=== PATIENT | female | born 1990 | race Caucasian/White ===

== ENCOUNTER 2024-10-27 16:44 | Outpatient (REF) | payer OTHER, SELFPAY | END 2024-10-27 16:45 | disposition home or self-care (01) | LOC: LAB 16:44 | PROVIDERS: Visit Provider Obstetrics & Gynecology | DX: N92.0 Excessive and frequent menstruation with regular cycle (principal); N93.9 Abnormal uterine and vaginal bleeding, unspecified ==

== ENCOUNTER 2024-11-02 12:00 | Outpatient (REF) | payer OTHER, SELFPAY ==
[2024-11-04 15:09] LABS: Age Gdln ACOG Testing Note (.); HPV Aptima Negative (Negative); IGP, Aptima HPV, rfx 16/18,45 Note (.)
== END 2024-11-02 12:01 | disposition home or self-care (01) ==
LOC: LAB 12:00
PROVIDERS: Visit Provider Obstetrics & Gynecology
DX: Z01.419 Encounter for gynecological examination (general) (routine) without abnormal findings (principal)
CPT/HCPCS: 87624; 88175

== ENCOUNTER 2024-11-07 13:22 | Emergency (ER) | payer OTHER, SELFPAY ==
--- OUTSIDE RECORDS SUMMARY | 2024-10-27 13:30 | XMS_ITS | Encounter Summary ---
Author Organization [facility] Address [address] [place] [address] Care Team Providers Care Senior Director Of Global Commercial Technology Solutions Name Role Phone Bear Knight MD Primary Care Provider [phone] Derik Cordero DO Unavailable [phone] Reason for Visit * Reason Comments Pre-op Visit EMBX Encounter Details Date Type Department Care Team (Late st Contact Info) Description 10/27/2024 1:30 PM EDT Procedure Visit [facility] [address] [place] [address] Elvin Pina, DO [address] [place] [address] Pre-op examination; Menorrhagia with regular cycle; Abnormal uterine bleeding (AUB); Pelvic pain Social History Tobacco Use Types Packs/Day Years Used Date Smoking Tobacco: Never Smokeless Tobacco: Never Alcohol Use Standard Drinks/Week Comments Never 0 (1 standard drink = 0.6 oz pur e alcohol) Comments Unknown Sex and Gender Information Value Date Recorded Sex Assigned at Not on file Legal Sex Female 7:25 PM EDT Gender Identity Not on file Sexual Orientation Not on file documented as of this encounter Last Filed Vital Signs Vital Sign Reading Time Taken Comments Blood Pressure 100/62 10/27/2024 2:07 PM EDT Pulse - - Temperature - - Respiratory Rate - - Oxygen Saturation - - Inhaled Oxygen Concentration - - Weight 81.9 kg (180 lb 8 oz) 10/27/2024 2:07 PM EDT Height - - Body Mass Index 27.44 08/29/2023 9:37 AM EDT documented in this encounter Progress Notes * Marlys Titus - 10/27/2024 1:30 PM EDT Reason for Appointment: Patient ID: Bria Meek is a 33 y.o. female who presents for Pre-op Visit and EMBX Patient presents today for Pre Op/Endometrial Biopsy appointment. Patient is scheduled to undergo Endometrial Ablation with Catia on 11-20-[address] Pina at [facility]. MEDICATIONS Current Outpatient Medications Medication Instructions Fluticasone-Salmeterol 250-50 MCG/ACT aerosol powder INHALE 1 PUFF IN THE MORNING AND 1 PUFF BEFOREBEDTIME. 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 Chronic dysfunction of right eustachian tube 03/05/2022 Asthma ([facility]) 05/06/1991 Difficulty walking 02/27/2023 Ear pressure, right 04/03/2022 Hidradenitis suppurativa 11/04/2018 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 03/05/2022 Internal derangement of left knee 02/27/2023 Obesity 11/04/2018 Patellofemoral pain syndrome of right knee 02/27/2023 No Additional Past Medical History HISTORY PAST MEDICAL HISTORY SOCIAL HISTORY Past Medical History: Diagnosis Date Asthma ([facility]) Asthma ([facility]) 05/06/1991 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 Chronic dysfunction of right eustachian tube 03/05/2022 Difficulty walking 02/27/2023 Ear pressure, right 04/03/2022 Hidradenitis suppurativa 11/04/2018 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 ZIMMERMAN [place] LAP,CHOLECYSTECTOMY 2015 TUBAL LIGATION TYMPANOSTOMY TUBE PLACEMENT 04/15/2023 REVIEW OF SYSTEMS Review of Systems: Review of Systems Constitutional: Negative. HENT: Negative. Eyes: Negative. Respiratory: Negative. Cardiovascular: Negative. Gastrointestinal: Negative. Genitourinary: Negative. Musculoskeletal: Negative. Skin: Negative. Neurological: Negative. All other systems reviewed and are negative. Hematological: Negative. Endocrine: Negative. Allergic/Immunologic: Negative. OBJECTIVE Objective: Physical Exam Constitutional: Appearance: Normal appearance. She is well-developed. Genitourinary: Vulva normal. Cardiovascular: Rate and Rhythm: Normal rate and regular rhythm. Pulmonary: Effort: Pulmonary effort is normal. Breath sounds: Normal breath sounds. Abdominal: General: Bowel sounds are normal. There is no distension. Palpations: Abdomen is soft. Tenderness: There is no abdominal tenderness. There is no guarding or rebound. Musculoskeletal: General: No swelling. Normal range of motion. Right lower leg: No edema. Left lower leg: No edema. Neurological: Mental Status: She is alert and oriented to person, place, and time. Skin: General: Skin is warm and dry. Psychiatric: Mood and Affect: Mood normal. Behavior: Behavior normal. Vitals and nursing note reviewed. Exam conducted with a building maintenance mechanic present. Vitals: Estimated body mass index is 27.89 kg/m² as calculated from the following: Height as of 08/29/23: 5' 8 . Weight as of 09/14/24: 183 lb 6.4 oz. BP: No LMP recorded. ASSESSMENT & PLAN ICD-10-CM 1. Pre-op examination Z01.818 2. Menorrhagia with regular cycle N92.0 3. Abnormal uterine bleeding (AUB) N93.9 4. Pelvic pain R10.2 EMBX: Patient was placed in dorsal lithotomy position with feet in stirrups. A sterile speculum was placed into the vagina and the cervix was visualized. The cervix was grasped with a single tooth tenaculum. The endometrial pipette was placed through the cervix into the uterus, endometrial curettage was performed and sampling was obtained, endometrial curettings were placed in formalin, and single tooth tenaculum was removed. Excellent hemostasis was assured. All instruments were removed from vagina. Pre Op: Patient is doing well but has complaints of menorrhagia, AUB, pelvic pain. I have discussed conservative management vs. surgical management with the patient in detail and patient desires surgical management at this time. Patient will undergo Endometrial Ablation with Catia on 11/20/24. Surgical consents were signed, mmc was reviewed, and patient is to proceed to [facility] OR. Follow Up: Patient is to follow up between 1-2 weeks post operative to assess proper healing and recovery fromprocedure. Documented by Nichole Correa LPN on behalf of: Elvin Pina DO documented in this encounter Plan of Treatment Upcoming Encounters Date Type Department Care Team (Late st Contact Info) Description 12/03/2024 2:30 PM EDT Office Visit [facility] [address] [place] [address] Giovanna Baker PA [address] [place] [address] documented as of this encounter Procedures Procedure Name Priority Date/Time Associated Diagnosis Comments POCT , URINE Routine 10/27/2024 2:16 PM EDT Pre-op examination documented in this encounter Results * POCT , urine manually resulted (10/27/2024 2:16 PM EDT) Preg Test, Ur Negative Negative Urine 10/27/2024 2:16 PM EDT Elvin Pina DO POINT OF CARE TEST ENTER/EDIT OR DERABLES Final Result documented in this encounter Visit Diagnoses Diagnosis Pre-op examination Menorrhagia with regular cycle Abnormal uterine bleeding (AUB) Pelvic pain documented in this encounter Care Teams Senior Director Of [employer] Solutions Relationship Specialty Start Date End Date Bear Knight MD PCP - General Family Medicine 03/01/23 Derik Cordero DO [address] [place] [address] Otolaryngology 08/29/23 documented as of this encounter
--- OUTSIDE RECORDS SUMMARY | 2024-11-02 10:20 | XMS_ITS | Encounter Summary ---
Author Organization [facility] Address [address] [place] [address] Care Team Providers Care Earrings Fabricator Name Role Phone Bear Knight MD Primary Care Provider [phone] Derik Cordero DO Unavailable [phone] Reason for Visit * Reason Comments Gynecologic Exam Encounter Details Date Type Department Care Team (Late st Contact Info) Description 11/02/2024 10:20 AM EDT Office Visit [facility] [address] [place] [phone] Elvin Pina, DO [address] [place], [place] [id number] Well woman exam with routine gynecological exam Social History Tobacco Use Types Packs/Day Years Used Date Smoking Tobacco: Never Smokeless Tobacco: Never Alcohol Use Standard Drinks/Week Comments Never 0 (1 standard drink = 0.6 oz pur e alcohol) Comments No Sex and Gender Information Value Date Recorded Sex Assigned at Not on file Legal Sex Female 7:25 PM EDT Gender Identity Not on file Sexual Orientation Not on file documented as of this encounter Last Filed Vital Signs Vital Sign Reading Time Taken Comments Blood Pressure 120/74 11/02/2024 10:13 AM EDT Pulse - - Temperature - - Respiratory Rate - - Oxygen Saturation - - Inhaled Oxygen Concentration - - Weight 79.8 kg (176 lb) 11/02/2024 10:13 AM EDT Height - - Body Mass Index 26.76 08/29/2023 9:37 AM EDT documented in this encounter Progress Notes * Adelaide Vale NP - 11/02/2024 10:20 AM EDT Reason for Appointment: Patient ID: Bria Meek is a 33 y.o. female who presents for Gynecologic Exam Patient presents today for Annual Exam. 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 ZIMMERMAN [place] LAP,CHOLECYSTECTOMY 2015 TUBAL LIGATION TYMPANOSTOMY TUBE PLACEMENT [...] appearance. She is well-developed. Genitourinary: Vulva normal. Breasts: Breasts are soft. Right: Normal. Left: Normal. Cardiovascular: Rate and Rhythm: Normal rate and [...] nursing note reviewed. Exam conducted with a design checker present. Vitals: Estimated body mass index is 26.76 kg/m² as calculated from the following: Height as of 08/29/23: 5' 8 . Weight as of this encounter: 176 lb. BP: 120/74 Patient's last menstrual period was 11/01/2024 (approximate). ASSESSMENT & PLAN ICD-10-CM 1. Well woman exam with routine gynecological exam Z01.419 Pap Smear HPV DNA probe, amplified Annual Exam: Patient presents today for an annual exam. Patient states she is doing well and has no complaints. Pap was obtained without difficulty. Orders Placed This Encounter Procedures HPV DNA probe, amplified Follow Up: Patient is to return in one year for annual unless needed otherwise. Documented by Adelaide Vale NP on behalf of: Elvin Pina DO documented in this encounter Plan of Treatment Upcoming Encounters Date Type Department Care Team (Late st Contact Info) Description 12/03/2024 2:30 PM EDT Office Visit [facility] [address] [place] [address] Giovanna Baker PA [address] [place] [address] Scheduled Orders Name Type Priority Associated Diagnoses Orde r Schedule Pap Smear Pathology and Cytology Routine Well woman exam with routine gynecological exam Ordered: 11/02/2024 HPV DNA probe, amplified Microbiology Routine Well woman exam with routine gynecological exam Ordered: 11/02/2024 documented as of this encounter Visit Diagnoses Diagnosis Well woman exam with routine gynecological exam Routine gynecological examination documented in this encounter Care Teams Earrings Fabricator Relationship Specialty Start Date End Date Bear Knight MD PCP - General Family Medicine 03/01/23 Derik Cordero DO [address] [place] [address] Otolaryngology 08/29/23 documented as of this encounter
[2024-11-07 13:30] VITALS: BP 118/73; PULSE 82; TEMP 36.8; O2SAT 98; BMI 27.9
--- OUTSIDE RECORDS SUMMARY | 2024-11-07 13:30 | XMS_ITS | Encounter Summary ---
Author Organization [facility] Address [id number] [address] [place] [address] Care Team Providers Care Commercial Analyst Name Role Phone Bear Knight Primary Care Provider [phone] Encounter Details Date Type Department Care Team (Late st Contact Info) Description 01/31/2023 Orders Only [facility] Internal Medicine - Family Medicine [address] [place] [phone] Chely Arnold CMA Chronic Eustachian tube dysfunction, right Social History Tobacco Use Types Packs/Day Years Used Date Smoking Tobacco: Never Smokeless Tobacco: Never Alcohol Use Standard Drinks/Week Comments Yes 0 (1 standard drink = 0.6 oz pur e alcohol) Occasional use PHQ-2 Answer Date Recorded Total Score 0 11/01/2022 Childcare Answer Date Recorded Childcare Unknown 10/15/2018 Employment Answer Date Recorded Employment Unknown 10/15/2018 Purpose - Life Answer Date Recorded Purpose and direction in life Unknown Comments No Sex and Gender Information Value Date Recorded Sex Assigned at Female 03/05/2022 10:39 AM EDT Legal Sex Female 11:44 AM EDT Gender Identity Female 03/05/2022 10:39 AM EDT Sexual Orientation Straight 03/05/2022 10 :39 AM EDT documented as of this encounter Plan of Treatment Not on file documented as of this encounter Procedures Procedure Name Priority Date/Time Associated Diagnosis Comments AMB REFERRAL TO ENT Routine 01/31/2023 8 :52 AM EDT Chronic Eustachian tube dysfunction, right documented in this encounter Results * Ambulatory referral to ENT (01/31/2023 8:52 AM EDT) Yocasta Larkin MISSILE INSPECTOR-DRUM WORKER OUTPATIENT REFERRAL PRABHJOT LIMON Final Result MANUALLY TRANSCRIBED RESULTS documented in this encounter Visit Diagnoses Diagnosis Chronic Eustachian tube dysfunction, right documented in this encounter Additional Health Concerns Assessment Noted Time PHQ-9 Depression Total Score: 0 11/02/19 23 10:57 AM EDT documented as of this encounter Care Teams Commercial Analyst Relationship Specialty Start Date End Date Bear Knight DO [address] [facility], [place] [address] PCP - General Family Medicine 10/30/18 documented as of this encounter
--- OUTSIDE RECORDS SUMMARY | 2024-11-07 13:30 | XMS_ITS | Encounter Summary ---
Author Organization [facility] Address [address] [place] [address] Care Team Providers Care Sas Bi Developer Name Role Phone Bear Knight MD Primary Care Provider [phone] Derik Cordero DO Unavailable [phone] Encounter Details Date Type Department Care Team (Late st Contact Info) Description 10/27/2024 External Result Encounter [facility] External Department Unsolicited Elvin Pina DO [address] [place] [address] Social History Tobacco Use Types Packs/Day Years [...] on file documented as of this encounter Plan of Treatment Upcoming Encounters Date Type Department Care Team (Late st Contact Info) Description 12/03/2024 2:30 PM EDT Office Visit [facility] [address] [place] [phone] Giovanna Baker PA [address] [place], [place] [phone] documented as of this encounter Procedures Procedure Name Priority Date/Time Associated Diagnosis Comments PATHOLOGY REQUEST FOR LAB HANNA Routine 10/27/2024 12:00 AM EDT documented in this encounter Results * PATHOLOGY REQUEST FOR LAB HANNA (10/27/2024 12:00 AM EDT) PATHOLOGY REQUEST FOR LAB HANNA 2024 8:24 AM EDT [facility] Comment:See report. Scanned copy available in EMR. Other Topography unknown / Unknown 10/27/2024 10/28/2024 1:11 PM EDT Narrative [facility] - 2024 8:24 AM EDT EMB Elvin Pina DO LAB BLOOD ORDERABLES Final Resul t [facility] [address] [place] [address], [facility] [address] [place] [address] documented in this encounter Visit Diagnoses Not on filedocumented in this encounter Care Teams Sas Bi Developer Relationship Specialty Start Date End Date Bear Knight MD PCP - General Family Medicine 03/01/23 Derik Cordero DO [address] [place] [address] Otolaryngology 08/29/23 documented as of this encounter
--- OUTSIDE RECORDS SUMMARY | 2024-11-07 13:30 | XMS_ITS | Encounter Summary ---
Author Organization [employer] Address [id number] [address] [place] [address] Care Team Providers Care Tooler Name Role Phone Bear Knight Primary Care Provider [phone] Encounter Details Date Type Department Care Team (Late st Contact Info) Description 01/15/2022 Orders Only [facility] [address] [place] [address] Char Meneses Dysfunction of both eustachian tubes Social History Tobacco Use Types Packs/Day Years Used Date Smoking Tobacco: Never Smokeless Tobacco: Never Alcohol Use Standard Drinks/Week Comments Yes 0 (1 standard drink = 0.6 oz pur e alcohol) Occasional use Childcare Answer Date Recorded Childcare Unknown 10/15/2018 [...] Orientation Straight 03/05/2022 10 :39 AM EDT COVID-19 Exposure Response Date Recorded In the last month, have you been in contact with someone who was confirmed or suspected to have Coronavirus / COVID-19? No / Unsure 01/12/2022 10:59 AM EDT documented as of this encounter Plan of Treatment Not on file documented as of this encounter Procedures Procedure Name Priority Date/Time Associated Diagnosis Comments HEARING EVALUATION (AUDIOLOGY) Routine 03/05/2022 documented in this encounter Results * Hearing Evaluation (Audiology) (03/05/2022) us Vinod Abbasi MD ENT ORDERABLES Final Result MANUALLY TRANSCRIBED RESULTS documented in this encounter Visit Diagnoses Diagnosis Dysfunction of both eustachian tubes documented in this encounter Care Teams Tooler Relationship Specialty Start Date End Date Bear Knight DO [address] [facility] [place] [address] PCP - General Family Medicine 10/30/18 documented as of this encounter
--- OUTSIDE RECORDS SUMMARY | 2024-11-07 13:30 | XMS_ITS | Encounter Summary ---
Author Organization [facility] Address [address] [facility] [place] [address] Care Team Providers Care Cloth Hauler Name Role Phone Bear Knight MD Primary Care Provider [phone] Derik Cordero DO Unavailable [phone] Encounter Details Date Type Department Care Team (Late st Contact Info) Description 10/15/2024 Abstract [facility] OB [address] [place] [address] Tiesha Meza [place] Social History Tobacco Use Types Packs/Day Years [...] Upcoming Encounters Date Type Department Care Team ([facility] Contact Info) Description 12/03/2024 2:30 PM EDT Office Visit [facility] OB [address] [place] [address] Giovanna Baker PA [address] [facility] [address] [place], [place] [phone] documented as of this encounter Visit Diagnoses Not on filedocumented in this encounter Care Teams Cloth Hauler Relationship Specialty Start Date End Date Bear Knight MD PCP - General Family Medicine 03/01/23 Derik Cordero DO [address] [place] [address] Otolaryngology 08/29/23 documented as of this encounter
--- OUTSIDE RECORDS SUMMARY | 2024-11-07 13:30 | XMS_ITS | Encounter Summary ---
Author Organization [facility] Address [address] [place] [address] [place] [address] Care Team Providers Care Bridge Opener Name Role Phone Bear Knight MD Primary Care Provider [phone] Derik Cordero DO Unavailable [phone] Encounter Details Date Type Department Care Team (Late st Contact Info) Description 11/02/2024 Clinisync Result Encounter [facility] External Department Unsolicited Elvin Pina DO [address] [place], [place] [address] Social History Tobacco Use Types Packs/Day Years [...] EDT Office Visit [facility] BCP OB [address] [place] [place] [address] Giovanna Baker PA [address] [place], [facility] documented as of this encounter Procedures Procedure Name Priority Date/Time Associated Diagnosis Comments IGP,APTIMA HPV,AGE GDLN Routine 11/02/2024 10:02 AM EDT documented in this encounter Results * IGP,APTIMA HPV,AGE GDLN (11/02/2024 10:02 AM EDT) [facility] TESTING Note . [facility] Comment: TESTS RESULT FLAG UNITS REF RANGE LAB Clinician Provided Cytology Information Source.............Cervix;Endocervix No. of containers..01 ThinPrep Vial Del FELIX Maryjane... FLAG LEGEND: L-Low Normal,H-High Normal,LL-Alert Low,HH-Alert High <-Panic Low,>-Panic High,A-Abnormal,AA-Critical Abnormal Performed at: 01 =G [address] [address] Patricia Anderson MD, IGP, APTIMA HPV, RFX 16/18,45 Note . [facility] Comment: TESTS RESULT FLAG UNITS REF RANGE LAB DIAGNOSIS: 02 NEGATIVE FOR INTRAEPITHELIAL LESION OR MALIGNANCY. Specimen adequacy: 02 Satisfactory for evaluation. Endocervical and/or squamous metaplastic cells (endocervical component) are present. Performed by: 02 Arabella Peña, Physical Security Manager ([facility]) . 02 Note: Note 02 The Pap smear is a screening test designed to aid in the detection of premalignant and malignant conditions of the uterine cervix. It is not a diagnostic procedure and should not be used as the sole means of detecting cervical cancer. Both false-positive and false-negative reports do occur. Test Methodology: Note 02 This liquid based ThinPrep(R) pap test was screened with the use of an image guided system. HPV Genotype Reflex Note 02 Criteria not met, HPV Genotype not performed. FLAG LEGEND: L-Low Normal,H-High Normal,LL-Alert Low,HH-Alert High <-Panic Low,>-Panic High,A-Abnormal,AA-Critical Abnormal Performed at: [address] [address] Patricia Anderson MD, HPV APTIMA Negative Negative TB Comment: This nucleic acid amplification test detects fourteen high- risk HPV types (16,18,31,33,35,39,45,51,52,56,58,59,66,68) without differentiation. Performed at: =[address] [id number] Electrical Engineering Technologist: Patricia Anderson MD, Phone: [phone] Performed at: [address] [id number] Electrical Engineering Technologist: Patricia Anderson MD, Phone: [phone] 11/02/2024 10:0 2 AM EDT 11/02/2024 12:08 PM EDT Narrative [facility] - 11/04/2024 3:09 PM EDT BRUSH-SPATULA CERVIX ENDOCERVIX us Elvin Pina DO LAB BLOOD ORDERABLES Final Resul t [facility] documented in this encounter Visit Diagnoses Not on filedocumented in this encounter Care Teams Bridge Opener Relationship Specialty Start Date End Date Bear Knight MD PCP - General Family Medicine 03/01/23 Derik Cordero DO [address] [place] [address] Otolaryngology 08/29/23 documented as of this encounter
--- OUTSIDE RECORDS SUMMARY | 2024-11-07 13:30 | XMS_ITS | Clinical Summary ---
Author Organization [facility] Address [address] [place] [address] Care Team Providers Care Cross Enterprise Integrator Name Role Phone Nuno Felix Primary Care Provider [phone] Allergies No known active allergies Medications montelukast (SINGULAIR) 10 mg tablet Take 1 tablet by mouth daily at bedtime. Take one(1) tablet daily 0 6 Active fluticasone-rachel meterol (ADVAIR DISKUS) 100-50 mcg/dose dsdv Inhale 1 Puff as instructed twice daily. 0 6 Active Social History Tobacco Use Types Packs/Day Years Used Date Smoking Tobacco: Never Alcohol Use Standard Drinks/Week Comments Not Asked 0 (1 standard drink = 0.6 oz pur e alcohol) Comments Unknown Sex and Gender Information Value Date Recorded Sex Assigned at Not on file Legal Sex Female 9:43 AM EST Gender Identity Not on file Sexual Orientation Not on file Last Filed Vital Signs Vital Sign Reading Time Taken Comments Blood Pressure 104/73 09/13/2015 10:44 AM EDT Pulse 76 09/13/2015 10:44 AM EDT Temperature 37.7 C (99.8 F) 09/13/2015 10:44 AM EDT Respiratory Rate - - Oxygen Saturation - - Inhaled Oxygen Concentration - - Weight 108.4 kg (239 lb) 09/13/2015 10:44 AM EDT Height 170.2 cm (5' 7 ) 09/13/2015 10:44 AM EDT Body Mass Index 37.43 09/13/2015 10:44 AM EDT Plan of Treatment Health Maintenance Due Date Last Done Comments Anxiety Screening 2008 Depression Screening 2008 HIV Screening 2008 Hepatitis C Screening 2008 DTaP,Tdap,Td Vaccine (1 - Tdap) 2009 Hepatitis B Vaccine (1 of 3 - 19+ 3-dose series) 11/03 Cervical Cancer Screening 11/04/2011 Covid-19 Vaccine ( season) 2024 Influenza Vaccine (#1) 2025 Insurance BLUE CARD PPO OOS Member Subscriber Plan / Payer (Ef fective 2015-Present) Name:Daniel Bruner Relation to Subscriber:Child Name:NUNO BRUNER Date of :1967 (Home) Address: [address] [place] [address] Payer ID:[id number] (NAIC) Type:PPO Address: [id number] [employer] Care Teams Cross Enterprise Integrator Relationship Specialty Start Date End Date Nuno Felix DO PCP - General Family Medicine 07/15/15
--- OUTSIDE RECORDS SUMMARY | 2024-11-07 13:30 | XMS_ITS | Encounter Summary ---
Author Organization [facility] Address [address] [place] [address] Care Team Providers Care Customer Expert Name Role Phone Bear Knight MD Primary Care Provider Derik Cordero DO Unavailable [phone] Encounter Details Date Type Department Care Team (Late st Contact Info) Description 10/27/2024 Abstract [facility] OB [address] [place] [address] Elvin Pina [address] [place], [place] [address] Social History Tobacco Use Types Packs/Day Years [...] 12/03/2024 2:30 PM EDT Office Visit [facility] OB [address] [place] [address] [place] [address] Giovanna Baker PA [address] [place], [facility] documented as of this encounter Visit Diagnoses Not on filedocumented in this encounter Care Teams Customer Expert Relationship Specialty Start Date End Date Bear Knight MD PCP - General Family Medicine 03/01/23 Derik Cordero DO [address] [place] [address] Otolaryngology 08/29/23 documented as of this encounter
--- OUTSIDE RECORDS SUMMARY | 2024-11-07 13:30 | XMS_ITS | Clinical Summary ---
Author Organization [facility] Address [address] [place] [address] Care Team Providers Care Inside B2B Sales Name Role Phone Bear Knight MD Primary Care Provider Derik Cordero DO Unavailable [phone] Allergies No known active allergies Medications Ventolin HFA 108 (90 Base) MCG/ACT inhaler INHALE 2 PUFFS BY MOUTH AND INTO THE LUNGS EVERY 6 HOURS NEEDED FOR WHEEZING 02/19/2023 Active Fluticasone-Ish meterol 250-50 MCG/ACT aerosol powder INHALE 1 PUFF IN THE MORNING AND 1 PUFF BEFORE BEDTIME. RINSE MOUTH AFTER USE 02/14/2023 Active ibuprofen 800 MG tablet Take 800 mg by mouth every 8 (eight) hours if needed. 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 03/05/2022 02/27/2023 Hidradenitis suppurativa 11/04/2018 Obesity 11/04/2018 02/27/2023 Asthma 05/06/1991 02/27/2023 Encounters Date Type Department Care Team Description 11/02/2024 10:20 AM EDT Office Visit [facility] [address] [place] [address] Elvin Pina, DO Well woman exam with routine gynecological exam 11/02/2024 Clinisync Result Encounter [facility] External Department Unsolicited Elvin Pina, DO 11/02/2024 Bamboo flowsheet [facility] [address] [place] [address] Elvin Pina, DO 10/27/2024 1:30 PM EDT Procedure Visit [facility] [address] [place] [address] [phone] Elvin Pina, Pre-op examination; Menorrhagia with regular cycle; Abnormal uterine bleeding (AUB); Pelvic pain 10/27/2024 Abstract [address] [address] [place] [address] Elvin Pina, DO 10/27/2024 External Result Encounter [facility] External Department Unsolicited Elvin Pina, DO 10/15/2024 Abstract [facility] [address] [place] [address] Tiesha Meza MA 10/09/2024 External Result Encounter [facility] External Department Unsolicited Elvin Pina, DO 10/08/2024 [address] [facility] [address] [place] [address] Linh Ahuja LPN 09/14/2024 2:50 PM EDT Office Visit [facility] [address] [place] [address] Elvin Pina, DO Pelvic pain in female; Painful menstruation; PCOS (polycystic ovarian syndrome) 09/14/[address] [place] [phone] Linh Ahuja LPN 09/14/2024 Bamboo flowsheet NOM[facility] [address] [place] [phone] Elvin Pina DO from Last 3 Months Family History Medical History Relation Name Comments Hypertension Father Parkinsonism Paternal Grandfather Diabetes Paternal Grandmother Relation Name Status Comments Father Alive Mother Alive Paternal Grandfather Paternal Grandmother Social History Tobacco Use Types Packs/Day Years Used Date Smoking Tobacco: Never Smokeless Tobacco: Never Tobacco Cessation:Counseling Given: Not Answered Alcohol Use Standard Drinks/Week Comments Never 0 [...] (176 lb) 11/02/2024 10:13 AM EDT Height 172.7 cm (5' 8 ) 08/29/2023 9:37 AM EDT Body Mass Index 26.76 08/29/2023 9:37 AM EDT Plan of Treatment Upcoming Encounters Date Type Department Care Team (Late st Contact Info) Description 12/03/2024 2:30 PM EDT Office Visit [facility] [address] [place] [phone] Giovanna Baker PA [address] [place] [address] [place] [address] Procedures Procedure Name Priority Date/Time Associated Diagnosis Comments IGP,APTIMA HPV,AGE GDLN Routine 11/02/2024 10:02 AM EDT POCT , URINE Routine 10/27/2024 2:16 PM EDT Pre-op examination PATHOLOGY REQUEST FOR LAB HANNA Routine 10/27/2024 12:00 AM EDT US PELVIS TRANSVAGINAL 10/14/2024 4:09 PM EDT DHEA SULFATE Routine 10/13/2024 2:43 PM EDT PCOS (polycystic ovarian syndrome) HEMOGLOBIN A1C Routine 10/13/2024 2:43 PM EDT PCOS (polycystic ovarian syndrome) LH Routine 10/13/2024 2:43 PM EDT PCOS (polycystic ovarian syndrome) FSH Routine 10/13/2024 2:43 PM EDT PCOS (polycystic ovarian syndrome) CBC (INCLUDES DIFF/PLT) Routine 10/13/2024 2:43 PM EDT PCOS (polycystic ovarian syndrome) T4, FREE Routine 10/13/2024 2:43 PM EDT PCOS (polycystic ovarian syndrome) TSH Routine 10/13/2024 2:43 PM EDT PCOS (polycystic ovarian syndrome) HCG, TOTAL, QN Routine 10/13/2024 2:43 PM EDT PCOS (polycystic ovarian syndrome) DEHYDROEPIANDROSTERON E, S Routine 10/09/2024 11:26 AM EDT LH Routine 10/09/2024 11:26 AM EDT FSH Routine 10/09/2024 11:26 AM EDT TSH Routine 10/09/2024 11:26 AM EDT DHEA SULFATE Routine 10/09/2024 11:26 AM EDT SERUM B HCG, 3RD I.S. ([facility]) Routine 10/09/2024 11:26 AM EDT HEMOGLOBIN A1C Routine 10/09/2024 11:26 AM EDT CBC WITH AUTO DIFFERENTIAL Routine 10/09/2024 11:26 AM EDT POCT , URINE Routine 09/14/2024 3:29 PM EDT Pelvic pain in female POCT URINALYSIS DIPSTICK Routine 09/14/2024 3:28 PM EDT Pelvic pain in female from Last 3 Months Results * IGP,APTIMA HPV,AGE GDLN (11/02/2024 10:02 AM EDT) [facility] GDLN AC TESTING Note . [facility] Comment: TESTS RESULT FLAG UNITS REF RANGE LAB Clinician Provided Cytology Information Source.............Cervix;Endocervix No. of containers..01 ThinPrep Vial Age Jonas ELVIRA Maryjane... 30 FLAG LEGEND: L-Low Normal,H-High Normal,LL-Alert Low,HH-Alert High <-Panic Low,>-Panic High,A-Abnormal,AA-Critical Abnormal Performed at: 01 =[address] [address] Patricia Anderson MD, IGP, APTIMA HPV, RFX 16/18,45 Note . [facility] Comment: TESTS RESULT FLAG UNITS REF RANGE LAB DIAGNOSIS: 02 NEGATIVE FOR INTRAEPITHELIAL LESION OR MALIGNANCY. Specimen adequacy: 02 Satisfactory for evaluation. Endocervical and/or squamous metaplastic cells (endocervical component) are present. Performed by: Taisha Peña Oil Scout ([facility]) . 02 Note: Note 02 The Pap [...] High <-Panic Low,>-Panic High,A-Abnormal,AA-Critical Abnormal Performed at: [address] [place] [id number] Patricia Anderson MD, HPV APTIMA Negative Negative TB Comment: This nucleic acid amplification test detects fourteen high- risk HPV types (16,18,31,33,35,39,45,51,52,56,58,59,66,68) without differentiation. Performed at: =[address] [id number] Herb Doctor: Patricia Anderson MD, Phone: [phone] Performed at: [address] [id number] Herb Doctor: Patricia Anderson MD, Phone: [phone] 11/02/2024 10:0 2 AM EDT 11/02/2024 12:08 PM EDT Narrative JACQUELINESADIEKATHRYN - 11/04/2024 3:09 PM EDT BRUSH-SPATULA CERVIX ENDOCERVIX us Elvin Yovani DO LAB BLOOD ORDERABLES Final Resul t Performing Organization Address [facility] Co de Phone Number [facility] * POCT , urine manually resulted (10/27/2024 2:16 PM EDT) Only the most recent of2 resultswithin the time period is included. Preg Test, Ur Negative Negative Urine 10/27/2024 2:16 PM EDT us Elvin Yovani DO POINT OF CARE TEST ENTER/EDIT OR DERABLES Final Result * PATHOLOGY REQUEST FOR LAB HANNA (10/27/2024 12:00 AM EDT) PATHOLOGY REQUEST FOR LAB HANNA 2024 8:24 AM EDT [facility] Comment:See report. Scanned copy available in EMR. Other Topography unknown / Unknown 10/27/2024 10/28/2024 1:11 PM EDT Narrative [facility] - 2024 8:24 AM EDT EMB us Elvin Yovani DO LAB BLOOD ORDERABLES Final Resul t Performing Organization Address [facility] Co de Phone Number [facility] [address] [place] [address], [facility] [address] [place] [address] * US pelvis transvaginal (10/14/2024 4:09 PM EDT) Anatomical Region Laterality Modality Pelvis Ultrasound 10/14/2024 4:09 PM EDT Narrative 10/14/2024 4:08 PM EDT THIS EXAM WAS PERFORMED AT [facility] Clinical history: Pelvic pain Findings:Transabdominal ultrasound was performed of the pelvis.. Endovaginal sonography was also performed to better evaluate the pelvic and adnexal structures.. Uterus measures 8.8 cm in length and 4.9 cm AP diameter. Endometrium measures 11 mm. Myometrium unremarkable. Right ovary 3.4 x 2.8 x 3.5 cm. Left ovary 3.2 x 2.0 x 2.1 cm. Bilateral ovarian follicles. Largest located in the right ovary measuring 1.7 x 1.9 cm Impression: Unremarkable pelvic ultrasound. Finalized by Narendra Fitzgerald MD on 10/14/2024 4:08 PM Procedure Note Radiology, Radiologist, MD - 10/14/2024 THIS EXAM WAS PERFORMED AT [facility] Clinical history: Pelvic pain Findings:Transabdominal ultrasound was performed of the pelvis..Endovaginal sonography was also performed to better evaluate the pelvicand adnexal structures.. Uterus measures 8.8 cm in length and 4.9 cm AP diameter. Endometriummeasures 11 mm. Myometrium unremarkable. Right ovary 3.4 x 2.8 x 3.5 cm. Left ovary 3.2 x 2.0 x 2.1 cm. Bilateral ovarian follicles. Largest located in the right ovary measuring1.7 x 1.9 cm Impression: Unremarkable pelvic ultrasound. Finalized by Narendra Fitzgerald MD on 10/14/2024 4:08 PM us Elvin Yovani DO IMG US PROCEDURES Final Result * DHEA-sulfate (10/13/2024 2:43 PM EDT) Only the most recent of2 resultswithin the time period is included. Blood Venous blood specimen / Unknown us Elvin Yovani DO LAB BLOOD ORDERABLES Final Resul t EXTERNAL LAB * CBC and differential (10/13/2024 2:43 PM EDT) Blood Venous blood specimen / Unknown us Elvin Yovani DO LAB BLOOD ORDERABLES Final Resul t EXTERNAL LAB * hCG, quantitative, (10/13/2024 2:43 PM EDT) Blood Venous blood specimen / Unknown us Elvin Yovani DO LAB BLOOD ORDERABLES Final Resul t Performing Organization Address [facility] de Phone Number EXTERNAL LAB * TSH (10/13/2024 2:43 PM EDT) Only the most recent of2 resultswithin the time period is included. Blood Venous blood specimen / Unknown us Elvin Yovani DO LAB BLOOD ORDERABLES Final Resul t Performing Organization Address [facility] Phone Number EXTERNAL LAB * T4, free (10/13/2024 2:43 PM EDT) Blood Venous blood specimen / Unknown us Elvin Yovani DO LAB BLOOD ORDERABLES Final Resul t Performing Organization Address [facility] de Phone Number EXTERNAL LAB * Hemoglobin A1c (10/13/2024 2:43 PM EDT) Only the most recent of2 resultswithin the time period is included. Blood Venous blood specimen / Unknown us Elvin Yovani DO LAB BLOOD ORDERABLES Final Resul t Performing Organization Address [facility] de Phone Number EXTERNAL LAB * Luteinizing hormone (10/13/2024 2:43 PM EDT) Only the most recent of2 resultswithin the time period is included. Blood Venous blood specimen / Unknown us Elvin Yovani DO LAB BLOOD ORDERABLES Final Resul t Performing Organization Address [facility] de Phone Number EXTERNAL LAB * Follicle stimulating hormone (10/13/2024 2:43 PM EDT) Only the most recent of2 resultswithin the time period is included. Blood Venous blood specimen / Unknown [employer] LAB BLOOD ORDERABLES Final Resul t Performing Organization Address City/[facility] Co de Phone Number EXTERNAL LAB * DEHYDROEPIANDROSTERONE, S (10/09/2024 11:26 AM EDT) DEHYDROEPIANDROSTERO NE, S 4.2 <10 ng/mL [facility] Comment: ADDITIONAL INFORMATION This test was developed and its performance characteristics determined by [facility] in a manner consistent with CLIA requirements. This test has not been cleared or approved by the U.S. Food and Drug Administration. Test Performed by: [facility] [place] [address] Herb Doctor: Jose Ogden Ph.D.; CLIA# [id number] 10/09/2024 11:2 6 AM EDT 10/09/2024 1:11 PM EDT [employer] LAB BLOOD ORDERABLES Final Resul t Performing Organization Address [facility] de Phone Number [facility] * SERUM B HCG, 3RD I.S. ([facility]) (10/09/2024 11:26 AM EDT) SERUM B HCG, 3RD I.S. <5 mIU/mL [facility] Comment: WEEKS (SINCE LMP) MIU/mL 3 WEEKS 5 - 50 4 WEEKS 5 - 426 5 WEEKS 18 - 7,340 6 WEEKS 1,080 - 56,500 7-8 WEEKS 7,650 - 229,000 9-12 WEEKS 25,700 - 288,000 13-16 WEEKS 13,300 - 254,000 17-24 WEEKS 4,060 - 165,400 25-40 WEEKS 3,640 - 117,000 MALES AND NON- FEMALES - <5 MIU/mL This test has been FDA approved for use in only. Elevated levels are not necessarily diagnostic for trophoblastic or nontrophoblastic neoplasms. PERFORMED AT [facility] [address],[place] [address] 10/09/2024 11:2 6 AM EDT 10/09/2024 1:11 PM EDT us Elvin Pina DO LAB BLOOD ORDERABLES Final Resul t [facility] * CBC auto differential (10/09/2024 11:26 AM EDT) WHITE BLOOD CELL COUNT, WBC 4.5 4 - 11 x10E9/L [facility] RED BLOOD CELL COUNT, RBC 3.85 3.8 - 5.2 X10E12/L [facility] HEMOGLOBIN 11.8 11.7 - 15.5 g/dL [facility] HEMATOCRIT 35.0 35 - 47 % [facility] MEAN CELL VOLUME, MCV 91 80 - 100 fL [facility] MEAN CELL HEMOGLOBIN, MCH 30.6 27 - 34 pg [facility] MEAN CELL HEMOGLOGIN CONCENTRATION, MCHC 33.7 32 - 36 g/dL [facility] RED CELL DISTRIBUTION WIDTH, RDW 13.1 11.5 - 15 % [facility] PLATELET COUNT 274 150 - 450 X10E9/L [facility] MEAN PLATELET VOLUME, MPV 8.3 7 - 12 fL [facility] % NEUTROPHILS 54.6 % [facility] % LYMPHOCYTES 31.6 % [facility] % MONOCYTES 10.3 % [facility] % EOSINOPHILS 2.3 % [facility] % BASOPHILS 1.2 % [facility] ABSOLUTE NEUTROPHIL 2.4 1.5 - 6.6 10*3/uL [facility] ABSOLUTE LYMPHOCYTE 1.4 1.0 - 3.5 10*3/uL [facility] ABSOLUTE MONOCYTE 0.5 0.0 - 0.9 10*3/uL [facility] ABSOLUTE EOSINOPHIL 0.1 0.0 - 0.4 10*3/uL [facility] ABSOLUTE BASOPHIL 0.1 0.0 - 0.2 10*3/uL [facility] DIFFERENTIAL TYPE AUTOMATED DIFFERENTIAL [facility] Comment: PERFORMED AT [facility] [address],[place] [address] 10/09/2024 11:2 6 AM EDT 10/09/2024 1:11 PM EDT Elvin Yovani DO LAB BLOOD ORDERABLES Final Resul t [facility] * POCT urinalysis dipstick manually resulted (09/14/2024 3:28 PM EDT) Color, UA Yellow Clarity, UA Clear Glucose, UA Negative Negative - 2000(110) ++++ mg/dL Bilirubin, UA Negative Negative - 4(70) +++ mg/dL Ketones, UA Negative Negative - 160(16) ++++ mg/dL Spec Grav, UA 1.020 1 - 1.03 Blood, UA Negative Negative - 50 Layton/mcL pH, UA 5.5 5 - 9 Protein, UA Negative Negative - 2000(20) ++++ mg/dL Urobilinogen, UA 1.0 0.2 - 12 mg/dL Leukocytes, UA Negative Negative - 500+++ Candi/mcL Nitrite, UA Negative Negative - Positive Urine 09/14/2024 3:28 PM EDT Elvni Yovani DO POINT OF CARE TEST ENTER/EDIT OR DERABLES Final Result from Last 3 Months Insurance [facility] Care Teams Inside B2B Sales Relationship Specialty Start Date End Date Bear Knight MD PCP - General Family Medicine 03/01/23 Derik Cordero DO [address] [place] [address] Otolaryngology 08/29/23
--- OUTSIDE RECORDS SUMMARY | 2024-11-07 13:30 | XMS_ITS | Clinical Summary ---
Author Organization [facility] [employer] [facility] tem Address [id number] [address] [place] [address] Care Team Providers Care International Logistics Manager Name Role Phone Bear Knight Primary Care Provider [phone] Allergies No known active allergies Medications albuterol (VENTOLIN HFA) 90 mcg/actuation inhalerIndication s:Moderate persistent asthma without complication INHALE 2 PUFFS BY MOUTH AND INTO THE LUNGS EVERY 6 HOURS NEEDED FOR WHEEZING 18 g 3 3 Active naproxen (NAPROSYN) 500 mg tablet TAKE 1 TABLET BY MOUTH 2 TIMES A DAY NEEDED FOR PAIN. 60 tablet 1 4 Active fluticasone propion-salmetero L (ADVAIR) 250-50 mcg/dose DISKUS INHALE 1 PUFF IN THE MORNING AND 1 PUFF BEFORE BEDTIME. 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 03/05/2022 Hidradenitis suppurativa 11/04/2018 Asthma 05[birth year]1991 Encounters Date Type Department Care Team Description 10/13/2024 1:39 PM EDT - 10/13/2024 11:59 PM EDT Hospital Encounter [facility] - Ultrasound [address] [place] [address] Elvin Pina DO Pelvic pain in female Discharge Disposition: Home 10/13/2024 Travel 10/09/2024 Travel from Last 3 Months Immunizations No known immunizations Family History Medical History Relation Name Comments Asthma Brother Hypertension Father Heart disease Maternal Grandfather Diabetes Paternal Grandfather Parkinsonism Paternal Grandmother Relation Name Status Comments Brother Alive Father Alive Maternal Grandfather Maternal Grandmother Alive Mother Alive Paternal Grandfather Paternal Grandmother Son 1 Alive Son 2 Alive Social History Tobacco Use Types Packs/Day Years Used Date Smoking Tobacco: Never Smokeless Tobacco: Never Tobacco Cessation:Counseling Given: Not Answered Alcohol Use Standard Drinks/Week Comments Yes 0 (1 standard drink = 0.6 oz pur e alcohol) Occasional use PHQ-2 Answer Date Recorded Total Score 0 03/12/2023 Childcare Answer Date Recorded Childcare Unknown 10/15/2018 Employment Answer Date Recorded Employment Unknown 10/15/2018 Hunger Screening Answer Date Recorded Within the past 12 months we worried whether our food would run out before we got money to buy more. Never True 06/22/2024 Within the past 12 months th e food we bought just didn't last and we didn't have money to get more. Never True 06/22/2024 Purpose - Life Answer Date Recorded Purpose and direction in life Unknown Comments No Sex and Gender Information Value Date Recorded Sex Assigned at Female 03/05/2022 10:39 AM EDT Legal Sex Female 11:44 AM EDT Gender Identity Female 03/05/2022 10:39 AM EDT Sexual Orientation Straight 03/05/2022 10 :39 AM EDT Last Filed Vital Signs Vital Sign Reading Time Taken Comments Blood Pressure 121/75 06/22/2024 7:10 PM EST Pulse 69 06/22/2024 7:10 PM EST Temperature 36.4 C (97.6 F) 06/22/2024 7:10 PM EST Respiratory Rate 18 06/22/2024 7:10 PM EST Oxygen Saturation 100% 06/22/2024 7:10 PM EST Inhaled Oxygen Concentration - - Weight 72.6 kg (160 lb) 06/22/2024 7:10 PM EST Height 170.2 cm (5' 7 ) 06/22/2024 7:10 PM EST Body Mass Index 25.06 06/22/2024 7:10 PM EST Plan of Treatment Health Maintenance Due Date Last Done Comments Adult BMI Follow Up Plan 2008 DTaP,Tdap and Td Vaccines (1 - Tdap) 2009 Pap Smear 11/04/2011 Depression Screening 03/12/2024 03/12/2023 Adult BMI Screening 06/22/2025 06/22/2024 Tobacco Screening 06/22/2025 06/22/2024 Influenza Vaccine Discontinued Medical Devices Not on file Procedures Procedure Name Priority Date/Time Associated Diagnosis Comments US PELVIC WITH TRANSVAGINAL Routine 10/13/2024 2:01 PM EDT Pelvic pain in female DEHYDROEPIANDROSTERON E, SERUM Routine 10/09/2024 11:26 AM EDT Polycystic ovarian syndrome HCG-BETA, SERUM Routine 10/09/2024 11:26 AM EDT Polycystic ovarian syndrome THYROID PROFILE INCLUDES TSH FT4 Routine 10/09/2024 11:26 AM EDT Polycystic ovarian syndrome CBC WITH AUTO DIFFERENTIAL Routine 10/09/2024 11:26 AM EDT Polycystic ovarian syndrome FOLLICLE STIMULATING HORMONE Routine 10/09/2024 11:26 AM EDT Polycystic ovarian syndrome LUTEINIZING HORMONE Routine 10/09/2024 1 1:26 AM EDT Polycystic ovarian syndrome HEMOGLOBIN A1C Routine 10/09/2024 11:26 AM EDT Polycystic ovarian syndrome DHEA-SULFATE Routine 10/09/2024 11:26 AM EDT Polycystic ovarian syndrome from Last 3 Months Results * Ultrasound pelvic with transvaginal (10/13/2024 2:01 PM EDT) Anatomical Region Laterality Modality Body, Pelvis Ultrasound 10/14/2024 4:07 PM EDT Narrative 10/14/2024 4:08 PM EDT Clinical history: Pelvic pain Findings:Transabdominal ultrasound was [...] MD on 10/14/2024 4:08 PM Procedure Note Narendra Fitzgerald MD - 10/14/2024 Clinical history: Pelvic pain Findings:Transabdominal ultrasound was [...] MD on 10/14/2024 4:08 PM us Elvin R Yovani DO [facility] US ORDERABLES Final Result * Dehydroepiandrosterone, Serum (DHEA) (10/09/2024 11:26 AM EDT) DEHYDROEPIANDROSTER ONE, S 4.2 <10 ng/mL 10/13/2024 1:58 PM EDT [facility] [employer] Comment: ADDITIONAL INFORMATION This test was developed and its performance characteristics determined by [facility] in a manner consistent with CLIA requirements. This test has not been cleared or approved by the U.S. Food and Drug Administration. Test Performed by: [facility] - [address] [address] Hearing Impaired Itinerant Teacher: Jose Ogden Ph.D.; CLIA# [id number] Blood Venous blood / Unknown Venipuncture / Unknown 10/09/2024 11:26 AM EDT 10/09/2024 11:27 AM EDT Elvin R Yovani DO LAB BLOOD ORDERABLES Final Resu lt [facility] [address] [place] [address], [place] * Thyroid profile includes TSH FT4 (10/09/2024 11:26 AM EDT) FREE T4 0.92 0.61 - 1.60 ng/dL 10/09/2024 6:43 PM EDT [facility] TSH 1.69 0.49 - 4.67 uIU/mL 10/09/2024 6:43 PM EDT [facility] Blood Venous blood / Unknown Venipuncture / Unknown 10/09/2024 11:26 AM EDT 10/09/2024 11:27 AM EDT Elvin R Yovani DO LAB BLOOD ORDERABLES Final Resu lt [facility] [address] [place] [address], * CBC auto differential (10/09/2024 11:26 AM EDT) WBC 4.5 4 - 11 x10E9/L 10/09/2024 2:53 PM EDT [facility] RBC Count 3.85 3.8 - 5.2 X10E12/L 10/09/2024 2:53 PM EDT [facility] Hemoglobin 11.8 11.7 - 15.5 g/dL 10/09/2024 2:53 PM EDT [facility] Hematocrit 35.0 35 - 47 % 10/09/2024 2:53 PM EDT [facility] MCV 91 80 - 100 fL 10/09/2024 2:53 PM EDT [facility] MCH 30.6 27 - 34 pg 10/09/2024 2:[facility] MCHC 33.7 32 - 36 g/dL 10/09/2024 2:53 PM EDT [facility] RDW 13.1 11.5 - 15 % 10/09/2024 2:53 PM EDT [facility] Platelet Count 274 150 - 450 X10E9/L 10/09/2024 2:53 PM EDT [facility] MPV 8.3 7 - 12 fL 10/09/2024 2:53 PM EDT [facility] Neutrophils % 54.6 % 10/09/2024 2:53 PM EDT [facility] Lymphocytes % 31.6 % 10/09/2024 2:53 PM EDT [facility] Monocytes % 10.3 % 10/09/2024 2:53 PM EDT [facility] Eosinophils % 2.3 % 10/09/2024 2:53 PM EDT [facility] Basophils % 1.2 % 10/09/2024 2:53 PM EDT [facility] Neutrophils Absolute (A) 2.4 1.5 - 6.6 10*3/uL 10/09/2024 2:53 PM EDT [facility] Lymphocytes Absolute 1.4 1.0 - 3.5 10*3/uL 10/09/2024 2:53 PM EDT [facility] Monocytes Absolute 0.5 0.0 - 0.9 10*3/uL 10/09/2024 2:53 PM EDT [facility] Eosinophils Absolute 0.1 0.0 - 0.4 10*3/uL 10/09/2024 2:53 PM EDT [facility] Basophils Absolute 0.1 0.0 - 0.2 10*3/uL 10/09/2024 2:53 PM EDT [facility] Differential Type AUTOMATED DIFFERENTIAL 10/09/2024 2:53 PM T [facility] Blood Venous blood / Unknown Venipuncture / Unknown 10/09/2024 11:26 AM EDT 10/09/2024 11:27 AM EDT Elvin R Yovani DO LAB BLOOD ORDERABLES Final Resu lt [facility] [address] [place] [address], * DHEA-sulfate (10/09/2024 11:26 AM EDT) DHEA S 120 23 - 266 ug/dL 10/09/2024 6:39 PM EDT [facility] Blood Venous blood / Unknown Venipuncture / Unknown 10/09/2024 11:26 AM EDT 10/09/2024 11:27 AM EDT Elvin R Onfido DO LAB BLOOD ORDERABLES Final Resu lt Performing Organization Address City/[facility]/ZIP Co de Phone Number [facility] [address] [place] [address], * hCG, quantitative, (10/09/2024 11:26 AM EDT) SERUM B HCG,3RD I.S. <5 mIU/mL 10/09/2024 6:27 PM EDT [facility] Blood Venous blood / Unknown Venipuncture / Unknown 10/09/2024 11:26 AM EDT 10/09/2024 11:27 AM EDT Narrative [facility] - 10/09/2024 6:27 PM EDT WEEKS (SINCE LMP) MIU/mL 3 WEEKS 5 [...] necessarily diagnostic for trophoblastic or nontrophoblastic neoplasms. Elvin R Yovani DO LAB BLOOD ORDERABLES Final Resu lt [facility] [address] [place] [address], * Hemoglobin A1c (10/09/2024 11:26 AM EDT) HEMOGLOBIN A1C 5.2 4.4 - 5.6 % 10/09/2024 3:37 PM EDT [facility] Comment: ADA Guidelines Result HgbA1c Normal : less than 5.7 % Prediabetes : 5.7 % to 6.4 % Diabetes : > 6.4 % Use with caution in patients with abnormal hemoglobin variants as the half-life of red blood cells and in vivo glycation rates are affected. EST. AVERAGE GLUCOSE 103 mg/dL 10/09/2024 3:37 PM EDT [facility] Blood Venous blood / Unknown Venipuncture / Unknown 10/09/2024 11:26 AM EDT 10/09/2024 11:27 AM EDT Elvin R Yovani DO LAB BLOOD ORDERABLES Final Resu lt [facility] [address] [place] [address], * Luteinizing hormone (10/09/2024 11:26 AM EDT) LUTEINIZING HORMONE 3.5 mIU/mL 10/09/2024 7:06 PM EDT [facility] Blood Venous blood / Unknown Venipuncture / Unknown 10/09/2024 11:26 AM EDT 10/09/2024 11:27 AM EDT Narrative [facility] - 10/09/2024 7:06 PM EDT NORMAL FEMALE Follicular 2.1-10.9 mIU/mL Mid Cycle 19.2-103 mIU/mL Luteal 1.2-12.9 mIU/mL Post [place]bidge 10.9-58.6 mIU/mL Elvin R Yovani DO LAB BLOOD ORDERABLES Final Resu lt Performing Organization Address [facility]/ZIP Co de Phone Number [facility] [address] [place] [address], [place] [phone] * Follicle stimulating hormone (10/09/2024 11:26 AM EDT) FOLLICLE STIM HORMONE 5.6 mIU/mL 10/09/2024 7:05 PM EDT [facility] Blood Venous blood / Unknown Venipuncture / Unknown 10/09/2024 11:26 AM EDT 10/09/2024 11:27 AM EDT Narrative [facility] - 10/09/2024 7:05 PM EDT NORMAL FEMALE: Luteal 1.8-5.1 mIU/mL Follicular 3.8-8.8 mIU/mL Mid Cycle 4.5-22.5 mIU/mL Post Nannette 16.7-113.6 mIU/mL Elvin R Yovani DO LAB BLOOD ORDERABLES Final Resu lt Performing Organization Address City/[facility]/ZIP Co de Phone Number [facility] [address] [place] [address], [place] [phone] from Last [address] [facility] Care Teams International Logistics Manager Relationship Specialty Start Date End Date Bear Knight DO [address], [place] [address] PCP - General Family Medicine 10/30/18
--- OUTSIDE RECORDS SUMMARY | 2024-11-07 13:30 | XMS_ITS | Encounter Summary ---
Author Organization [facility] Address [id number] [address] [place] [address] Care Team Providers Care Flight Director Name Role Phone Bear Knight Primary Care Provider + [phone] Encounter Details Date Type Department Care Team (Late st Contact Info) Description 05/07/2023 Orders Only [facility] Internal Medicine - Family Medicine [address] [place] [address] Yocasta Larkin, TUBE DRAWING SUPERVISOR-HAT LACER [address] [place] [address] Chronic dysfunction of right eustachian tube; 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 Social History Tobacco Use Types Packs/Day Years [...] got money to buy more. Never True 03/12/2023 Within the past 12 months th e food we bought just didn't last and we didn't have money to get more. Never True 03/12/2023 Purpose - Life Answer Date Recorded Purpose [...] Diagnosis Comments AMB REFERRAL TO ENT Routine 05/03/2023 Chronic dysfunction of right eustachian tube 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 documented in this encounter Results * Ambulatory referral to ENT (05/03/2023) Yocasta Larkin TUBE DRAWING SUPERVISOR-HAT LACER OUTPATIENT REFERRAL ORDE ASHLY Final Result MANUALLY TRANSCRIBED RESULTS documented in this encounter Visit Diagnoses Diagnosis Chronic dysfunction of right eustachian tube 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 documented in this encounter Additional Health Concerns Assessment Noted Time PHQ-9 Depression Total Score: 0 03/12/20 23 11:14 AM EST documented as of this encounter Care Teams Flight Director Relationship Specialty Start Date End Date Bear Knight DO [address], [place] [address] PCP - General Family Medicine 10/30/18 documented as of this encounter
--- OUTSIDE RECORDS SUMMARY | 2024-11-07 13:30 | XMS_ITS | Encounter Summary ---
Author Organization [facility] Address [facility] [id number] [address] [place] [address] Care Team Providers Care General Office Worker Name Role Phone Bear Knight Primary Care Provider + [phone] Encounter Details Date Type Department Care Team (Late st Contact Info) Description 04/24/2023 Orders Only [facility] Internal Medicine - Family Medicine [address] [place] [id number] External, Scanning Provider Social History Tobacco Use Types Packs/Day Years [...] on file documented as of this encounter Visit Diagnoses Not on filedocumented in this encounter Additional Health Concerns Assessment Noted Time PHQ-9 Depression Total Score: 0 03/12/20 23 11:14 AM EST documented as of this encounter Care Teams General Office Worker Relationship Specialty Start Date End Date Bear Knight DO [address] [facility], [place] [address] PCP - General Family Medicine 10/30/18 documented as of this encounter
--- OUTSIDE RECORDS SUMMARY | 2024-11-07 13:30 | XMS_ITS | Encounter Summary ---
Author Organization [facility] Address [address] [place] [address] Care Team Providers Care Armature Tester Name Role Phone Bear Knight MD Primary Care Provider [phone] Derik Cordero DO Unavailable [phone] Encounter Details Date Type Department Care Team (Late st Contact Info) Description 02/22/2023 Abstract [facility] [employer] [facility] [address] [place] [address] Zaira Griffin S, AUD [address] [place] [address] Social History Tobacco Use Types Packs/Day Years [...] EDT Office Visit [facility] [address] [place] [place] [address] Giovanna Baker PA [address] [address] documented as of this encounter Visit Diagnoses Not on filedocumented in this encounter Care Teams Armature Tester Relationship Specialty Start Date End Date Bear Knight MD PCP - General Family Medicine 03/01/23 Derik Cordero DO [address] [place] [address] Otolaryngology 08/29/23 documented as of this encounter
--- OUTSIDE RECORDS SUMMARY | 2024-11-07 13:30 | XMS_ITS | Encounter Summary ---
Author Organization [facility] Address [address] [facility] [place] [address] Care Team Providers Care Medical Assistant Cardiology Name Role Phone Bear Knight MD Primary Care Provider Derik Cordero DO Unavailable [phone] Encounter Details Date Type Department Care Team (Late st Contact Info) Description 11/02/2024 Bamboo flowsheet [facility] OB [address] [place] [address] Elvin Pina [address] [place], [place] [address] Social History Tobacco Use Types Packs/Day Years [...] 12/03/2024 2:30 PM EDT Office Visit [facility] OB [address] [place] [address] Giovanna Baker PA [address] [place] [address] [place] [id number] documented as of this encounter Visit Diagnoses Not on filedocumented in this encounter Care Teams Medical Assistant Cardiology Relationship Specialty Start Date End Date Bear Knight MD PCP - General Family Medicine 03/01/23 Derki Cordero DO [address] [place] [address] Otolaryngology 08/29/23 documented as of this encounter
--- NOTE | 2024-11-07 13:41 | CT_ITS ---
The [address] [address] Patient Name: DANIEL BRUNER MRN: [id number] date: 1990 Sex: F Assigned Patient Location: ER Current Patient Location: ER Accession/Order Number: [id number] Exam Date: 11/07/2024 14:28 Report Date: 11/07/2024 14:36 At the request of: PATY POSADA MD Procedure: CT abdomen pelvis w con CT Abdomen and Pelvis withcontrast TECHNIQUE: Axial imaging with 2-D reconstruction.100 cc of Omni 300. The CT exam was performed using one or more the following dose reduction techniques: Automated exposure control, adjustment of the MA and/or Kv according to patient size, or use of the iterative reconstruction technique. COMPARISON: None History: Lower abdominal pain. Nausea. LIMITATIONS: None LOWER THORAX Unremarkable LIVER: Unremarkable GALLBLADDER: Cholecystectomy clips identified. BILE DUCTS: No dilatation SPLEEN: Unremarkable PANCREAS: Unremarkable ADRENAL GLANDS: Unremarkable KIDNEYS:Unremarkable AORTA: No abdominal aortic aneurysm identified. RETROPERITONEUM: No significant retroperitoneal abnormalities identified. MESENTERY:Unremarkable STOMACH:Unremarkable SMALL BOWEL: The small bowel loops are nondistended. APPENDIX: The appendix is normal. COLON: Unremarkable URINARY BLADDER: Urinary bladder wall thickening. Underdistention versus cystitis. REPRODUCTIVE SYSTEM: Unremarkable uterus. Bilateral ovarian follicles. Tubal ligation PNEUMOPERITONEUM: None PERITONEAL FLUID:Small low density pelvic ascites. BONY STRUCTURES: Unremarkable ABDOMINAL WALL: Unremarkable CT/CT abdomen pelvis w con IMPRESSION: Urinary bladder wall thickening. Underdistention versus cystitis. Small low-density pelvic ascites. Bilateral ovarian follicles. Impression dictated by: Haroon Bailey M.D. 11/07/2024 2:36 PM Dictation Location: [facility] Electronically authenticated by: [id number] Y Date: 11/07/2024 14:36
--- NOTE | 2024-11-07 13:42 | ED_ITS ---
HPI HPI - General Adult General Chief complaint: Abdominal Pain Stated complaint: ABDOMINAL CRAMPS, PELVIC PAIN Time Seen by Provider: 11/07/24 13:25 Source: patient Mode of arrival: walk-in Limitations: no limitations History of Present Illness HPI narrative: 34-year-old female presents to the emergency department for bilateral lower abdominal pain. She has had it for more than a week. No constipation or diarrhea or vaginal discharge. No dysuria or hematuria or flank pain or back pain. For the last few days it has been continuous Related Data Home Medications �Medication �Instructions �Recorded �Confirmed fluticasone 100 mcg-salmeterol 50 1 inh inhalation BID 11/07/24 11/07/24 mcg/dose blistr powdr for inhalation (Advair Diskus) Previous Rx's �Medication �Instructions �Recorded cephalexin 500 mg capsule 500 mg PO TID 7 days #21 cap s 11/07/24 Allergies Allergy/AdvReac Type Severity Reaction Status Date / Time No Known Drug Allergies Allergy Verified 11/07/24 13:32 Opioid HPI Opioid Management Most Recent Opioid Data: Last Pain Scale 9 Today, 13:30 Review of Systems ROS Narrative A ten point review of systems is negative except as noted above. PFSH PFSH Social History Little interest or pleasure in doing things: not at all Feeling down, depressed, or hopeless: not at all Exam Narrative Exam Narrative: Nurses note and vital signs reviewed and patient is not hypoxic. General: The patient appears well and in no apparent distress. Patient is resting comfortably on cart. Skin: Warm, dry, no pallor noted. There is no rash noted. Head: Normocephalic, atraumatic Eye: Normal conjunctiva, no drainage Ears, Nose, Mouth, and Throat: oral mucosa is moist. Nares patent. Cardiovascular: Regular Rate and Rhythm Respiratory: Patient is in no distress, no accessory muscle use, lungs are clear to auscultation, no wheezing, rales or rhonchi Back: non-tender, no CVA tenderness bilaterally to percussion. GI: Normal bowel sounds, mild tenderness to palpation in the bilateral lower abdomen. No masses Musculoskeletal: The patient has no evidence of calf tenderness, no pitting edema, symmetrical pulses noted bilaterally Neurological: A&O, normal speech Psychiatric: Cooperative Constitutional Vital Signs, click to edit/add: Last Vital Signs Temp 98.3 F 11/07/24 13:30 Pulse 82 11/07/24 13:30 Resp 18 11/07/24 13:30 BP 118/73 11/07/24 13:30 Pulse Ox 98 11/07/24 13:30 O2 Del Method Room Air 11/07/24 13:30 Course Vital Signs Vital signs: Vital Signs Temperature 98.3 F 11/07/24 13:30 Pulse Rate 82 11/07/24 13:30 Respiratory Rate 18 11/07/24 13:30 Blood Pressure 118/73 11/07/24 13:30 Pulse Oximetry 98 11/07/24 13:30 Oxygen Delivery Method Room Air 11/07/24 13:30 Temperature 98.3 F 11/07/24 13:30 Pulse Rate 82 11/07/24 13:30 Respiratory Rate 18 11/07/24 13:30 Blood Pressure 118/73 11/07/24 13:30 Pulse Oximetry 98 11/07/24 13:30 Oxygen Delivery Method Room Air 11/07/24 13:30 Medical Decision Making MDM Narrative Medical decision making narrative: CT of the abdomen is negative and blood work is normal as well. Urinalysis shows UTI and she was prescribed Keflex. Treatment diagnosis and follow-up were discussed with the patient. Differential Diagnosis Differential Diagnosis: , UTI, ovarian cyst, constipation Lab Data Lab results reviewed: Yes I reviewed the patient's lab results Labs: Lab Results 11/07/24 11/07/24 Range/Units 13:45 13:48 WBC 9.1 (4.0-11.0) 10^3/uL RBC 3.94 L (4.20-5.40) 10^6/uL Hgb 12.1 (12.0-16.0) g/dL Hct 35.6 L (36.0-48.0) % MCV 90.4 (81.0-99.0) fL MCH 30.7 (26.7-34.0) pg MCHC 34.0 (29.9-35.2) g/dL RDW 11.9 (11.0-15.0) % Plt Count 278 (150-450) 10^3/uL MPV 9.6 (9.5-13.5) fL Neut % (Auto) 75.0 (43.0-75.0) % Lymph % (Auto) 15.2 L (20.5-60.0) % [place] % (Auto) 9.1 (1.7-12.0) % Eos % (Auto) 0.2 L (0.9-7.0) % Baso % (Auto) 0.3 (0.2-2.0) % Neut # (Auto) 6.8 H (1.4-6.5) 10^3/uL Lymph # (Auto) 1.4 (1.2-3.8) 10^3/uL [place] # (Auto) 0.8 (0.3-0.8) 10^3/uL Eos # (Auto) 0.0 (0.0-0.7) 10^3/uL Baso # (Auto) 0.0 (0.0-0.1) 10^3/uL Abs Immat Gran (auto) 0.02 (0.00-0.03) 10^3/uL Imm/Tot Granulo (auto) 0.2 (0.0-0.5) % Sodium 143 (136-145) mmol/L Potassium 3.2 L (3.5-5.1) mmol/L Chloride 103 (98-107) mmol/L Carbon Dioxide 30.2 (21.0-32.0) mmol/L Anion Gap 13.0 BUN 6.0 L (7.0-18.0) mg/dL Creatinine 0.52 L (0.55-1.02) mg/dL Est GFR ( Amer) >60 (>=60 mL/min/1.73m^2) Est GFR (Non-Af Amer) >60 (>=60 mL/min/1.73m^2) BUN/Creatinine Ratio 11.5 Glucose 100 (74-106) mg/dL Calcium 9.3 (8.5-10.1) mg/dL Serum HCG, Qual Negative (NEGATIVE) Urine Color Yellow (YELLOW) Urine Clarity Sl cloudy (CLEAR) Urine pH 7.0 (5.0-9.0) Ur Specific [place] 1.010 (1.005-1.025) Urine Protein 30 A (NEG/TRACE) mg/dL Urine Glucose (UA) Negative (NEGATIVE) mg/dL Urine Ketones >=80 A (NEGATIVE) mg/dL Urine Occult Blood Large A (NEGATIVE) Urine Nitrite Negative (NEGATIVE) Urine Bilirubin Small A (NEGATIVE) Urine Urobilinogen 1.0 (0.2-1.0) EU/dL Ur Leukocyte Esterase Large A (NEGATIVE) Urine RBC 2-5 A (0-2) #/HPF Urine WBC >100 A (NONE SEEN) #/HPF Ur Squamous Epith Cells Many A (NONE/RARE) #/LPF Ur Transition Epith Cell Few A (NONE SEEN) #/LPF Urine Crystals None seen (None Seen) #/HPF Urine Bacteria Large A (NONE SEEN) #/HPF Urine Casts None seen (NONE SEEN) #/LPF Urine Mucus Small A (NONE SEEN) Ur Culture Indicated? Yes-[facility] Imaging Data CT scan - abdomen: Radiologist's impression: ITS Impressions Abdomen/Pelvis CT 11/07/24 13:41 IMPRESSION: Urinary bladder wall thickening. Underdistention versus cystitis. Small low-density pelvic ascites. Bilateral ovarian follicles. Impression dictated by: Haroon Bailey M.D. 11/07/2024 2:36 PM Dictation Location: [employer] Electronically authenticated by: [id number] Y Date: 11/07/2024 14:36 Discharge Plan Discharge Chief Complaint: Abdominal Pain Clinical Impression: Urinary tract infection Patient Disposition: Home, Self-Care Time of Disposition Decision: 14:56 Condition: Good Mode of Transportation: Private Vehicle Prescriptions / Home Meds: New cephalexin 500 mg capsule 500 mg PO TID 7 Days Qty: 21 0RF No Action fluticasone propion-salmeterol [Advair Diskus] 100-50 mcg/dose blister with device 1 inh inhalation BID Print Language: Cambodian Instructions: Urinary Tract Infection in Women (ED) Referrals: JANES GOULD [Primary Care Provider, Family Practice] - 1 week
[2024-11-07 14:00] LABS: Hematocrit 35.6 % (36.0-48.0); Hemoglobin 12.1 g/dL (12.0-16.0); Immature Granulocytes Abs Auto 0.02 10^3/uL (0.00-0.03); Immature Granulocytes Pct Auto 0.2 % (0.0-0.5); Lymphocytes Absolute Auto 1.4 10^3/uL (1.2-3.8); Mean Corpuscular HGB Conc 34.0 g/dL (29.9-35.2); Mean Corpuscular Hemoglobin 30.7 pg (26.7-34.0); Mean Corpuscular Volume 90.4 fL (81.0-99.0); Platelet Count 278 10^3/uL (150-450); Red Blood Count 3.94 10^6/uL (4.20-5.40); White Blood Count 9.1 10^3/uL (4.0-11.0)
[2024-11-07 14:04] LABS: Glucose Urine UA NEGATIVE (NEGATIVE)
[2024-11-07 14:05] LABS: Anion Gap 13.0; Blood Urea Nitrogen 6.0 mg/dL (7.0-18.0); Calcium 9.3 mg/dL (8.5-10.1); Carbon Dioxide 30.2 mmol/L (21.0-32.0); Chloride 103 mmol/L (98-107); Estimated GFR (African America >60 (>=60 mL/min/1.73m^2); Estimated GFR (Non-African Ame >60 (>=60 mL/min/1.73m^2); Glucose 100 mg/dL (74-106); Potassium 3.2 mmol/L (3.5-5.1); Sodium 143 mmol/L (136-145)
[2024-11-07 14:18] LABS: Crystals Seen? None Seen #/HPF (None Seen)
[2024-11-07 14:19] LABS: Cast Seen? NONE SEEN #/LPF (NONE SEEN); Urine Culture Indicated YES-FRMC
== END 2024-11-07 15:03 | disposition home or self-care (01) ==
PROVIDERS: Emergency Provider Emergency Medicine; PCP Family Medicine
DX: N39.0 Urinary tract infection, site not specified (principal)
CPT/HCPCS: 36415; 74177; 80048; 81001; 84703; 85025; 87086; 99285; Q9967

== ENCOUNTER 2024-11-11 14:41 | Outpatient (OUT) | payer OTHER, SELFPAY ==
--- OUTSIDE RECORDS SUMMARY | 2024-11-02 10:20 | XMS_ITS | Encounter Summary ---
Author Organization [facility] Address [address] [place] [address] Care Team Providers Care Building Construction Estimator Name Role Phone Bear Knight MD Primary Care Provider Derik Cordero DO Unavailable [phone] Reason for Visit * Reason Comments Gynecologic Exam Encounter Details Date Type Department Care Team (Late st Contact Info) Description 11/02/2024 10:20 AM EDT Office Visit [facility] OB [address] [place] [phone] Elvin Pina, DO [address] [place], [place] [id number] Well woman exam with routine gynecological exam [...] Procedure Laterality Date MYRINGOTOMY W/ TUBES Bilateral [place] KNEE SCOPE,DIAGNOSTIC Left 04/22/2020 DR. ZIMMERMAN [place] LAP,CHOLECYSTECTOMY 2015 TUBAL LIGATION TYMPANOSTOMY TUBE PLACEMENT [...] nursing note reviewed. Exam conducted with a outbound sales executive present. Vitals: Estimated body mass index is 26.76 kg/m?? as calculated from the following: Height as [...] EDT Office Visit [facility] [address] [address] Giovanna Baker PA [address] [place] [address] Scheduled Orders Name Type Priority Associated Diagnoses [...] examination documented in this encounter Care Teams Building Construction Estimator Relationship Specialty Start Date End Date Bear Knight MD PCP - General Family Medicine 03/01/23 Derik Cordero DO [address] [place] [address] Otolaryngology 08/29/23 documented as of this encounter
--- OUTSIDE RECORDS SUMMARY | 2024-11-11 14:47 | XMS_ITS | Encounter Summary ---
Author Organization [facility] Address [address] [place] [address] Care Team Providers Care Cosmetologist Apprentice Name Role Phone Bear Knight MD Primary Care Provider [phone] Derik Cordero DO Unavailable [phone] Encounter Details Date Type Department Care Team (Late st Contact Info) Description 10/27/2024 External Result Encounter [facility] External Department Unsolicited Elvin Pina DO [address] [place] [address] Social History Tobacco Use Types Packs/Day Years [...] EDT Office Visit [facility] [address] [place] [address] Giovanna Baker PA [address] [place], [place] [id number] documented as of this encounter Procedures Procedure Name Priority Date/Time Associated Diagnosis Comments PATHOLOGY REQUEST FOR LAB HANNA Routine 10/27/2024 12:00 AM EDT documented in this encounter Results * PATHOLOGY REQUEST FOR LAB HANNA (10/27/2024 12:00 AM EDT) PATHOLOGY REQUEST FOR LAB HANNA 2024 8:24 AM EDT [facility] Comment:See report. Scanned copy available in EMR. Other Topography unknown / Unknown 10/27/2024 10/28/2024 1:11 PM EDT Narrative [facility] - 2024 8:24 AM EDT EMB Elvin Pina DO LAB BLOOD ORDERABLES Final Resul t [facility] [address] [place] [address], [facility] [address] [place] [address] documented in this encounter Visit Diagnoses Not on filedocumented in this encounter Care Teams Cosmetologist Apprentice Relationship Specialty Start Date End Date Bear Knight MD PCP - General Family Medicine 03/01/23 Derik Cordero DO [address] [address] Otolaryngology 08/29/23 documented as of this encounter
--- OUTSIDE RECORDS SUMMARY | 2024-11-11 14:47 | XMS_ITS | Encounter Summary ---
Author Organization [facility] Address [address] [facility] [place] [address] Care Team Providers Care Fan Mail Editor Name Role Phone Bear Knight MD Primary Care Provider Derik Cordero DO Unavailable [phone] Encounter Details Date Type Department Care Team (Late st Contact Info) Description 11/10/2024 Orders Only [facility] OB [address] [address] Ramona Marti LPN [address] [place] [id number] Social History Tobacco Use Types Packs/Day Years [...] 12/03/2024 2:30 PM EDT Office Visit [facility] [address] [place] [address] Giovanna Baker PA [address] [place] [address] documented as of this encounter Procedures Procedure Name Priority Date/Time Associated Diagnosis Comments PAP SMEAR Routine 11/02/2024 12:00 AM EDT documented in this encounter Results * Pap Smear (11/02/2024 12:00 AM EDT) Swab Cervical swab / Unknown Elvin Pina DO LAB CYTOLOGY ORDERABLES Final Re sult EXTERNAL LAB documented in this encounter Visit Diagnoses Not on filedocumented in this encounter Care Teams Fan Mail Editor Relationship Specialty Start Date End Date Bear Knight MD PCP - General Family Medicine 03/01/23 Derik Cordero DO [address] [address] Otolaryngology 08/29/23 documented as of this encounter
--- OUTSIDE RECORDS SUMMARY | 2024-11-11 14:47 | XMS_ITS | Encounter Summary ---
Author Organization [facility] Address [address] [facility] [place] [address] Care Team Providers Care Arts And Sciences Dean Name Role Phone Bear Knight MD Primary Care Provider [phone] Derik Cordero DO Unavailable [phone] Encounter Details Date Type Department Care Team (Late st Contact Info) Description 11/09/2024 Telephone [facility] [address] [place] [address] Tiesha Meza MA Social History Tobacco Use Types Packs/Day Years [...] on file documented as of this encounter Miscellaneous Notes * Telephone Encounter - Tiesha Meza MA - 11/09/2024 2:02 PM EDT Pt called stating she had went to [facility] ER for severe uti. States they prescribed cephalexin 500mg TID for 7 days. Pt states still having pain and discomfort. Per US MARKETING DIRECTOR ok to send in pyridium if not relief by Saturday pt to stop in and leave us urine sample PVU documented in this encounter Plan of Treatment Upcoming Encounters Date Type Department Care Team (Late Contact Info) Description 12/03/2024 2:30 PM EDT Office Visit [facility] [address] [address] Giovanna Baker PA [address] [place] [address] documented as of this encounter Visit Diagnoses Diagnosis Acute cystitis with hematuria documented in this encounter Care Teams Arts And Sciences Dean Relationship Specialty Start Date End Date Bear Knight MD PCP - General Family Medicine 03/01/23 Derik Cordero DO [address] [place] [address] Otolaryngology 08/29/23 documented as of this encounter
--- OUTSIDE RECORDS SUMMARY | 2024-11-11 14:47 | XMS_ITS | Clinical Summary ---
Author Organization [facility] Address [address] [place] [address] Care Team Providers Care Brick Unloader Tender Name Role Phone Nuno Felix Primary Care Provider [phone] Allergies No known active allergies Medications montelukast [...] Address: [address] [place] [address] Payer ID:[id number] (NAIC) Type:PPO Address: [address] [employer] Care Teams Brick Unloader Tender Relationship Specialty Start Date End Date Nuno Felix DO PCP - General Family Medicine 07/15/15
--- OUTSIDE RECORDS SUMMARY | 2024-11-11 14:47 | XMS_ITS | Clinical Summary ---
Author Organization [facility] tem Address [id number] [address] [place] [address] Care Team Providers Care Technical Healthcare Consultant Name Role Phone Bear Knight Primary Care Provider [phone] Allergies No known active allergies Medications albuterol [...] 11:59 PM EDT Hospital Encounter [facility] - Ultrasound [address] [place] [address] Elvin Pina DO Pelvic pain in female [...] 4:08 PM us Elvin R Yovani DO [facility] US ORDERABLES Final Result * Dehydroepiandrosterone, Serum (DHEA) (10/09/2024 11:26 AM EDT) DEHYDROEPIANDROSTER ONE, S 4.2 <10 ng/mL 10/13/2024 1:58 PM EDT [facility] Comment: ADDITIONAL INFORMATION This test was developed and its performance characteristics determined by [facility] in a manner consistent with CLIA requirements. This test has not been cleared or approved by the U.S. Food and Drug Administration. Test Performed by: [facility] - [address] [address] Training Administrator: Jose Ogden Ph.D.; CLIA# [id number] Blood Venous blood / Unknown Venipuncture / Unknown 10/09/2024 11:26 AM EDT 10/09/2024 11:27 AM EDT Elvin R Yovani DO LAB BLOOD ORDERABLES Final Resu lt [facility] [address] [place] [address], [place] * Thyroid profile includes TSH FT4 (10/09/2024 11:26 AM EDT) FREE T4 0.92 0.61 - 1.60 ng/dL 10/09/2024 6:43 PM EDT [facility] TSH 1.69 0.49 - 4.67 uIU/mL 10/09/2024 6:43 PM EDT [facility] Blood Venous blood / Unknown Venipuncture / Unknown 10/09/2024 11:26 AM EDT 10/09/2024 11:27 AM EDT Elvin R Yovani DO LAB BLOOD ORDERABLES Final Resu lt [facility] [address] [place] [address], * CBC auto differential (10/09/2024 11:26 AM EDT) WBC 4.5 4 - 11 x10E9/L 10/09/2024 2:53 PM EDT [facility] RBC Count 3.85 3.8 - 5.2 X10E12/L 10/09/2024 2:53 PM EDT [facility] Hemoglobin 11.8 11.7 - 15.5 g/dL 10/09/2024 2:53 PM EDT [facility] Hematocrit 35.0 35 - 47 % 10/09/2024 2:53 PM EDT [facility] MCV 91 80 - 100 fL 10/09/2024 2:53 PM EDT [facility] MCH 30.6 27 - 34 pg 10/09[facility]2024 [facility] MCHC 33.7 32 - 36 g/dL 10/09/2024 2:53 PM EDT [facility] RDW 13.1 11.5 - 15 % 10/09/2024 2:53 PM EDT [facility] Platelet Count 274 150 - 450 X10E9/L 10/09/2024 2:53 PM EDT [facility] MPV 8.3 7 - 12 fL 10/09/2024 2:53 PM EDT [facility] Neutrophils % 54.6 % 10/09/2024 2:53 PM EDT [facility] Lymphocytes % 31.6 % 10/09/2024 2:53 PM EDT [facility] Monocytes % 10.3 % 10/09/2024 2:53 PM EDT [facility] Eosinophils % 2.3 % 10/09/2024 2:53 PM EDT [facility] Basophils % 1.2 % 10/09/2024 2:53 PM EDT [facility] Neutrophils Absolute (A) 2.4 1.5 - 6.6 10*3/uL 10/09/2024 2:53 PM EDT [facility] Lymphocytes Absolute 1.4 1.0 - 3.5 10*3/uL 10/09/2024 2:53 PM EDT [facility] Monocytes Absolute 0.5 0.0 - 0.9 10*3/uL 10/09/2024 2:53 PM EDT [facility] Eosinophils Absolute 0.1 0.0 - 0.4 10*3/uL 10/09/2024 2:53 PM EDT [facility] Basophils Absolute 0.1 0.0 - 0.2 10*3/uL 10/09/2024 2:53 PM EDT [facility] Differential Type AUTOMATED DIFFERENTIAL 10/09/2024 2:53 PM T [facility] Blood Venous blood / Unknown Venipuncture / Unknown 10/09/2024 11:26 AM EDT 10/09/2024 11:27 AM EDT Elvin R Yovani DO LAB BLOOD ORDERABLES Final Resu lt [facility] [address] [place] [address], * DHEA-sulfate (10/09/2024 11:26 AM EDT) DHEA S 120 23 - 266 ug/dL 10/09/2024 6:39 PM EDT [facility] Blood Venous blood / Unknown Venipuncture / Unknown 10/09/2024 11:26 AM EDT 10/09/2024 11:27 AM EDT Elvin R [employer] DO LAB BLOOD ORDERABLES Final Resu lt Performing Organization Address City/[facility]/ZIP Co de Phone Number [facility] [address] [place] [address], * hCG, quantitative, (10/09/2024 11:26 AM EDT) SERUM B HCG,3RD I.S. <5 mIU/mL 10/09/2024 6:27 PM EDT [facility] Blood Venous blood / Unknown Venipuncture / Unknown 10/09/2024 11:26 AM EDT 10/09/2024 11:27 AM EDT Narrative [facility] - 10/09/2024 6:27 PM EDT [...] DO LAB BLOOD ORDERABLES Final Resu lt [facility] [address] [place] [address], * Hemoglobin A1c (10/09/2024 11:26 AM EDT) HEMOGLOBIN A1C 5.2 4.4 - 5.6 % 10/09/2024 3:37 PM EDT [facility] Comment: ADA Guidelines Result HgbA1c Normal : less than 5.7 % Prediabetes : 5.7 % to 6.4 % Diabetes : > 6.4 % Use with caution in patients with abnormal hemoglobin variants as the half-life of red blood cells and in vivo glycation rates are affected. EST. AVERAGE GLUCOSE 103 mg/dL 10/09/2024 3:37 PM EDT [facility] Blood Venous blood / Unknown Venipuncture / Unknown 10/09/2024 11:26 AM EDT 10/09/2024 11:27 AM EDT Elvin R Yovani DO LAB BLOOD ORDERABLES Final Resu lt [facility] [address] [place] [address], * Luteinizing hormone (10/09/2024 11:26 AM EDT) LUTEINIZING HORMONE 3.5 mIU/mL 10/09/2024 7:06 PM EDT [facility] Blood Venous blood / Unknown Venipuncture / Unknown 10/09/2024 11:26 AM EDT 10/09/2024 11:27 AM EDT Narrative [facility] - 10/09/2024 7:06 PM EDT NORMAL FEMALE Follicular 2.1-10.9 mIU/mL Mid Cycle 19.2-103 mIU/mL Luteal 1.2-12.9 mIU/mL Post [place] 10.9-58.6 mIU/mL Elvin R Yovani DO LAB BLOOD ORDERABLES Final Resu lt Performing Organization Address [facility]/ZIP Co de Phone Number [facility] [address] [place] [address], [place] [phone] * Follicle stimulating hormone (10/09/2024 11:26 AM EDT) FOLLICLE STIM HORMONE 5.6 mIU/mL 10/09/2024 7:05 PM EDT [facility] Blood Venous blood / Unknown Venipuncture / Unknown 10/09/2024 11:26 AM EDT 10/09/2024 11:27 AM EDT Narrative [facility] - 10/09/2024 7:05 PM EDT NORMAL FEMALE: Luteal 1.8-5.1 mIU/mL Follicular 3.8-8.8 mIU/mL Mid Cycle 4.5-22.5 mIU/mL Post [place] 16.7-113.6 mIU/mL Elvin R Yovani DO LAB BLOOD ORDERABLES Final Resu lt Performing Organization Address City/[facility]/ZIP Co de Phone Number [facility] [address] [place] [address], [place] [phone] from Last 3 Months Insurance [facility] Care Teams Technical Healthcare Consultant Relationship Specialty Start Date End Date Bear Knight DO [address] [place] [address] PCP - General Family Medicine 10/30/18
--- OUTSIDE RECORDS SUMMARY | 2024-11-11 14:47 | XMS_ITS | Encounter Summary ---
Author Organization [employer] Address [id number] [address] [place] [address] Care Team Providers Care Incident Commander Name Role Phone Bear Knight Primary Care Provider [phone] Encounter Details Date Type Department Care Team (Late st Contact Info) Description 01/15/2022 Orders Only [facility] [address] [place] [address] Char Meneses Dysfunction of both [...] tubes documented in this encounter Care Teams Incident Commander Relationship Specialty Start Date End Date Bear Knight DO [address] [facility] [place] [address] PCP - General Family Medicine 10/30/18 documented as of this encounter
--- OUTSIDE RECORDS SUMMARY | 2024-11-11 14:47 | XMS_ITS | Encounter Summary ---
Author Organization [facility] Address [address] [facility] [address] [place] [address] Care Team Providers Care Infrastructure Analyst Name Role Phone Bear Knight MD Primary Care Provider Derik Cordero DO Unavailable [phone] Encounter Details Date Type Department Care Team (Late st Contact Info) Description 10/27/2024 Abstract [facility] OB [address] [facility] [place] [address] Elvin Pina [address] [place], [place] [address] Social History Tobacco Use Types Packs/Day Years [...] 12/03/2024 2:30 PM EDT Office Visit [facility] OB [address] [place] [address] [place] [address] Giovanna Baker PA [address] [facility] [address] [place], [facility] documented as of this encounter Visit Diagnoses Not on filedocumented in this encounter Care Teams Infrastructure Analyst Relationship Specialty Start Date End Date Bear Knight MD PCP - General Family Medicine 03/01/23 Derik Cordero DO [address] [place] [address] Otolaryngology 08/29/23 documented as of this encounter
--- OUTSIDE RECORDS SUMMARY | 2024-11-11 14:47 | XMS_ITS | Encounter Summary ---
Author Organization [facility] Address [id number] [address] [place] [address] Care Team Providers Care Centrifugal Drier Operator Name Role Phone Bear Knight Primary Care Provider + [phone] Encounter Details Date Type Department Care Team (Late st Contact Info) Description 04/24/2023 Orders Only [facility] - Family Medicine [address] [place] [id number] External, Scanning Provider Social History Tobacco Use [...] documented as of this encounter Care Teams Centrifugal Drier Operator Relationship Specialty Start Date End Date Bear Knight DO [address] [facility] [place] [address] PCP - General Family Medicine 10/30/18 documented as of this encounter
--- OUTSIDE RECORDS SUMMARY | 2024-11-11 14:47 | XMS_ITS | Encounter Summary ---
Author Organization [facility] Address [address] [place] [address] [place] [address] Care Team Providers Care Helper Shear Operator Name Role Phone Bear Knight MD Primary Care Provider [phone] Derik Cordero DO Unavailable [phone] Encounter Details Date Type Department Care Team (Late st Contact Info) Description 02/22/2023 Abstract [facility] [address] [place] [address] Zaira Griffin S, AUD [address] [place] [address] Social History Tobacco Use Types Packs/Day Years [...] EDT Office Visit [facility] OB [address] [place] [address] Giovanna Baker PA [address] [facility] [place] [address] documented as of this encounter Visit Diagnoses Not on filedocumented in this encounter Care Teams Helper Shear Operator Relationship Specialty Start Date End Date Bear Knight MD PCP - General Family Medicine 03/01/23 Derik Cordero DO [address] [place] [address] Otolaryngology 08/29/23 documented as of this encounter
--- OUTSIDE RECORDS SUMMARY | 2024-11-11 14:47 | XMS_ITS | Encounter Summary ---
Author Organization [facility] Address [address] [facility] [place] [address] Care Team Providers Care Database Programmer Analyst Name Role Phone Bear Knight MD Primary Care Provider [phone] Derik Cordero DO Unavailable [phone] Encounter Details Date Type Department Care Team (Late st Contact Info) Description 10/15/2024 Abstract [facility] OB [address] [facility] [place] [address] Tiesha Meza [place] Social History Tobacco Use Types Packs/Day Years [...] Upcoming Encounters Date Type Department Care Team ([facility] Contact Info) Description 12/03/2024 2:30 PM EDT Office Visit [facility] OB [address] [facility] [facility] [place] [address] Giovanna Baker PA [address] [facility] [address] [place], [place] [id number] documented as of this encounter Visit Diagnoses Not on filedocumented in this encounter Care Teams Database Programmer Analyst Relationship Specialty Start Date End Date Bear Knight MD PCP - General Family Medicine 03/01/23 Derik Cordero DO [address] [place] [address] Otolaryngology 08/29/23 documented as of this encounter
--- OUTSIDE RECORDS SUMMARY | 2024-11-11 14:47 | XMS_ITS | Encounter Summary ---
Author Organization [facility] Address [id number] [address] [place] [address] Care Team Providers Care Copy Chief Name Role Phone Bear Knight Primary Care Provider [phone] Encounter Details Date Type Department Care Team (Late st Contact Info) Description 05/07/2023 Orders Only [facility] Internal Medicine - Family Medicine [address] [place] [address] Yocasta Larkin, AGRICULTURE INSPECTOR-CRAB STEAMER [address] [place] [address] Chronic dysfunction of right eustachian tube; High [...] Ambulatory referral to ENT (05/03/2023) Yocasta Larkin AGRICULTURE INSPECTOR-CRAB STEAMER OUTPATIENT REFERRAL ORDE ASHLY Final Result MANUALLY TRANSCRIBED RESULTS documented in this encounter Visit Diagnoses Diagnosis Chronic dysfunction of right eustachian tube 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
--- OUTSIDE RECORDS SUMMARY | 2024-11-11 14:48 | XMS_ITS | Encounter Summary ---
Author Organization [facility] Address [address] [place] [address] Care Team Providers Care Sprayer Hand Name Role Phone Bear Knight MD Primary Care Provider [phone] Derik Cordero DO Unavailable [phone] Encounter Details Date Type Department Care Team (Late st Contact Info) Description 11/02/2024 Clinisync Result Encounter [facility] External Department Unsolicited Elvin Pina DO [address] [facility] [facility] [address] [place], [place] [address] Social History Tobacco Use Types Packs/Day Years [...] [facility] OB [address] [place] [address] Giovanna Baker PA [address] [facility] [place], [facility] documented as of this encounter Procedures Procedure Name Priority Date/Time Associated Diagnosis Comments IGP,APTIMA HPV,AGE GDLN Routine 11/02/2024 10:02 AM EDT documented in this encounter Results * IGP,APTIMA HPV,AGE GDLN (11/02/2024 10:02 AM EDT) [facility] TESTING Note . [facility] Comment: TESTS RESULT FLAG UNITS REF RANGE LAB Clinician Provided Cytology Information Source.............Cervix;Endocervix No. of containers..01 ThinPrep Vial Del FELIX Maryjane... FLAG LEGEND: L-Low Normal,H-High Normal,LL-Alert Low,HH-Alert High <-Panic Low,>-Panic High,A-Abnormal,AA-Critical Abnormal Performed at: 01 =G [address] [address] Patricia Anderson MD, IGP, APTIMA HPV, RFX 16/18,45 Note . [facility] Comment: TESTS RESULT FLAG UNITS REF RANGE LAB DIAGNOSIS: 02 NEGATIVE FOR INTRAEPITHELIAL LESION OR MALIGNANCY. Specimen adequacy: 02 Satisfactory for evaluation. Endocervical and/or squamous metaplastic cells (endocervical component) are present. Performed by: 02 Arabella Peña, Manager Psychiatry ([facility]) . 02 Note: Note 02 The Pap [...] <-Panic Low,>-Panic High,A-Abnormal,AA-Critical Abnormal Performed at: [address] [address] Patricia Anderson MD, HPV APTIMA Negative Negative TB Comment: This nucleic acid amplification test detects fourteen high- risk HPV types (16,18,31,33,35,39,45,51,52,56,58,59,66,68) without differentiation. Performed at: =[address] [id number] Ore Storage Drier: Patricia Anderson MD, Phone: [phone] Performed at: [address] [id number] Ore Storage Drier: Patricia Anderson MD, Phone: [phone] 11/02/2024 10:0 2 AM EDT 11/02/2024 12:08 PM EDT Narrative [facility] - 11/04/2024 3:09 PM EDT BRUSH-SPATULA CERVIX ENDOCERVIX us Elvin Pina DO LAB BLOOD ORDERABLES Final Resul t [facility] documented in this encounter Visit Diagnoses Not on filedocumented in this encounter Care Teams Sprayer Hand Relationship Specialty Start Date End Date Bear Knight MD PCP - General Family Medicine 03/01/23 Derik Cordero DO [address] [place] [address] Otolaryngology 08/29/23 documented as of this encounter
--- OUTSIDE RECORDS SUMMARY | 2024-11-11 14:48 | XMS_ITS | Clinical Summary ---
Author Organization [facility] Address [address] [place] [address] Care Team Providers Care Beater Machine Operator Name Role Phone Bear Knight MD Primary Care Provider [phone] Derik Cordero DO Unavailable [phone] Allergies No known active allergies Medications Ventolin [...] IN THE EVENING WITH MEALS 01/23/2023 Active phenazopyridine (Pyridium) 100 MG tabletIndicatio ns:Acute cystitis with hematuria Take 1 tablet (100 mg) by mouth 3 (three) times a day as needed for bladder spasms for up to 3 days 10 tablet 11/09/2024 11/13/19 Active Resolved Problems Problem Noted Date Diagnosed [...] Encounters Date Type Department Care Team Description 11/10/2024 Orders Only [facility] [address] [place] [address] Ramona Marti LPN 11/09/2024 Telephone [facility] [address] [place] [address] Tiesha Meza MA 11/02/2024 10:20 AM EDT Office Visit [facility] [address] [place] [address] Elvin Pina, Well woman exam with routine gynecological exam 11/02/2024 Clinisync Result Encounter [facility] External Department Unsolicited Elvin Pina, 11/02/2024 Bamboo flowsheet [facility] [address] [place] [address] Elvin Pina, 10/27/2024 1:30 PM EDT Procedure Visit [facility] [address] [place] [address] Elvin Pina, Pre-op examination; Menorrhagia with regular cycle; Abnormal uterine bleeding (AUB); Pelvic pain 10/27/2024 Abstract [facility] [place] [address] [place] [address] Elvin Pina, 10/27/2024 External Result Encounter [facility] External Department Unsolicited Elvin Pina, 10/15/2024 Abstract [facility] [place] [address] [place] [address] Tiesha Meza MA 10/09/2024 External Result Encounter [facility] External Department Unsolicited Elvin Pina DO 10/08/20[address] [address] [place] [address] Linh Ahuja LPN 09/14/2024 2:50 PM EDT Office Visit [facility] [address] [place] [address] Elvin Pina DO Pelvic pain in female; Painful menstruation; PCOS (polycystic ovarian syndrome) 09/14/2024 Telephone [facility] [address] [place] [address] Linh Ahuja, TARIK 09/14/2024 Bamboo flowsheet [facility] [address] [place] [address] Elvin Pina DO from Last 3 Months [...] EDT Office Visit [facility] B[facility] OB [address] [place] [phone] Giovanna Baker PA [address] [facility] [place] [address] Procedures Procedure Name Priority Date/Time Associated Diagnosis Comments IGP,APTIMA HPV,AGE GDLN Routine 11/02/2024 10:02 AM EDT PAP SMEAR Routine 11/02/2024 12:00 AM EDT POCT , URINE Routine 10/27/2024 [...] IGP,APTIMA HPV,AGE GDLN (11/02/2024 10:02 AM EDT) Pathologist [facility] . [facility] Comment: TESTS RESULT FLAG UNITS REF RANGE LAB Clinician Provided Cytology Information Source.............Cervix;Endocervix No. of containers..01 ThinPrep Vial Del FELIX Maryjane... FLAG LEGEND: L-Low Normal,H-High Normal,LL-Alert Low,HH-Alert High <-Panic Low,>-Panic High,A-Abnormal,AA-Critical Abnormal Performed at: 01 =G [facility] [place] [address] [place] [address] Patricia Anderson MD, IGP, APTIMA HPV, RFX 16/18,45 Note . [facility] Comment: TESTS RESULT FLAG UNITS REF RANGE LAB DIAGNOSIS: 02 NEGATIVE FOR INTRAEPITHELIAL LESION OR MALIGNANCY. Specimen adequacy: 02 Satisfactory for evaluation. Endocervical and/or squamous metaplastic cells (endocervical component) are present. Performed by: 02 Arabella Peña, Engineering Instructor ([facility]) . 02 Note: Note 02 The [...] <-Panic Low,>-Panic High,A-Abnormal,AA-Critical Abnormal Performed at: 02 WB [facility] [place] [address] [facility] [place] [address] Patricia Anderson MD, HPV APTIMA Negative Negative [facility] Comment: This nucleic acid amplification test detects fourteen high- risk HPV types (16,18,31,33,35,39,45,51,52,56,58,59,66,68) without differentiation. Performed at: = - [facility] [id number] Restaurant Service Manager: Patricia Anderson MD, Phone: [phone] Performed at: - [facility], [place] [id number] Restaurant Service Manager: Patricia Anderson MD, Phone: [phone] 11/02/2024 10:0 2 AM EDT 11/02/2024 12:08 PM EDT Narrative [facility] - 11/04/2024 3:09 PM EDT BRUSH-SPATULA CERVIX ENDOCERVIX Dauria Aerospaceo DO LAB BLOOD ORDERABLES Final Resul t Performing Organization Address [facility]/ZIP Co de Phone Number [facility] * Pap Smear (11/02/2024 12:00 AM EDT) Swab Cervical swab / Unknown Dauria Aerospaceo DO LAB CYTOLOGY ORDERABLES Final Re sult Performing Organization Address City/[facility]/ZIP Co de Phone Number EXTERNAL LAB * POCT , urine manually resulted (10/27/2024 2:16 PM EDT) Only the most recent of2 resultswithin the time period is included. Preg Test, Ur Negative Negative Urine 10/27/2024 2:16 PM EDT TxtFeedbacko DO POINT OF CARE TEST ENTER/EDIT OR DERABLES Final Result * PATHOLOGY REQUEST FOR LAB HANNA (10/27/2024 12:00 AM EDT) PATHOLOGY REQUEST FOR LAB HANNA 2024 8:24 AM EDT [facility] Comment:See report. Scanned copy available in EMR. Other Topography unknown / Unknown 10/27/2024 10/28/2024 1:11 PM EDT Narrative [facility] - 2024 8:24 AM EDT EMB us Elvin Yovani DO LAB BLOOD ORDERABLES Final Resul t [facility] [address] [place] [address], [facility] [address] [place] [address] * US pelvis transvaginal (10/14/2024 4:09 PM EDT) Anatomical Region Laterality Modality Pelvis Ultrasound 10/14/2024 4:09 PM EDT Narrative 10/14/2024 4:08 PM EDT THIS EXAM WAS PERFORMED AT [facility] Clinical history: Pelvic pain Findings:Transabdominal ultrasound [...] 10/14/2024 4:08 PM Procedure Note Radiology, Radiologist, - 10/14/2024 THIS EXAM WAS PERFORMED AT [facility] Clinical history: Pelvic pain Findings:Transabdominal ultrasound [...] ORDERABLES Final Resul t Performing Organization Address [facility] de Phone Number EXTERNAL LAB * CBC and differential (10/13/2024 2:43 PM EDT) Blood Venous blood specimen / Unknown us Elvin Yovani DO LAB BLOOD ORDERABLES Final Resul t Performing Organization Address [facility] de Phone Number EXTERNAL LAB * hCG, quantitative, (10/13/2024 2:43 PM EDT) Blood Venous blood specimen / Unknown us Elvin Yovani DO LAB BLOOD ORDERABLES Final Resul t Performing Organization Address [facility] Phone Number EXTERNAL LAB * TSH (10/13/2024 2:43 PM EDT) Only the most recent of2 resultswithin the time period is included. Blood Venous blood specimen / Unknown us Elvin Yovani DO LAB BLOOD ORDERABLES Final Resul t Performing Organization Address [facility] de Phone Number EXTERNAL LAB * T4, free (10/13/2024 2:43 PM EDT) Blood Venous blood specimen / Unknown us Elvin Yovani DO LAB BLOOD ORDERABLES Final Resul t Performing Organization Address [facility] de Phone Number EXTERNAL LAB * Hemoglobin A1c (10/13/2024 2:43 PM EDT) Only the most recent of2 resultswithin the time period is included. Blood Venous blood specimen / Unknown us Elvin Yovani DO LAB BLOOD ORDERABLES Final Resul t Performing Organization Address [facility] de Phone Number EXTERNAL LAB * Luteinizing hormone (10/13/2024 2:43 PM EDT) Only the most recent of2 resultswithin the time period is included. Blood Venous blood specimen / Unknown us Elvin Yovani DO LAB BLOOD ORDERABLES Final Resul t Performing Organization Address [facility] de Phone Number EXTERNAL LAB * Follicle stimulating hormone (10/13/2024 2:43 PM EDT) Only the most recent of2 resultswithin the time period is included. Blood Venous blood specimen / Unknown us Elvin Yovani DO LAB BLOOD ORDERABLES Final Resul t Performing Organization Address [facility] de Phone Number EXTERNAL LAB * DEHYDROEPIANDROSTERONE, S (10/09/2024 11:26 AM EDT) DEHYDROEPIANDROSTERO NE, S 4.2 <10 ng/mL [facility] Comment: ADDITIONAL INFORMATION This test was developed and its performance characteristics determined by [facility] in a manner consistent with CLIA requirements. This test has not been cleared or approved by the U.S. Food and Drug Administration. Test Performed by: [facility] - [address] [address] Restaurant Service Manager: Jose Ogden Ph.D.; CLIA# [id number] 10/09/2024 11:2 6 AM EDT 10/09/2024 1:11 PM EDT Elvin Yovani DO LAB BLOOD ORDERABLES Final Resul t Performing Organization Address [facility] Co de Phone Number [facility] * SERUM B [...] for trophoblastic or nontrophoblastic neoplasms. PERFORMED AT [facility] [address] [facility],[place] [address] 10/09/2024 11:2 6 AM EDT 10/09/2024 1:11 PM EDT us Dauria Aerospaceo DO LAB BLOOD ORDERABLES Final Resul t [...] TYPE AUTOMATED DIFFERENTIAL [facility] Comment: PERFORMED AT [facility] [address],[place] [address] 10/09/2024 11:2 6 AM EDT 10/09/2024 1:11 PM EDT us Elvin Pina DO LAB BLOOD ORDERABLES Final Resul t [facility] * POCT urinalysis dipstick manually resulted (09/14/2024 3:28 PM EDT) [facility] Signature Color, UA Yellow Clarity, UA Clear Glucose, [...] - Positive Urine 09/14/2024 3:28 PM EDT Elvin Pina DO POINT OF CARE TEST ENTER/EDIT OR DERABLES Final Result from Last 3 Months Insurance [facility] Care Teams Beater Machine Operator Relationship Specialty Start Date End Date Bear Knight MD PCP - General Family Medicine 03/01/23 Derik Cordero DO [address] [place] [address] Otolaryngology 08/29/23
--- OUTSIDE RECORDS SUMMARY | 2024-11-11 14:48 | XMS_ITS | Encounter Summary ---
Author Organization [facility] Address [address] [facility] [place] [address] Care Team Providers Care Manager Harbor Name Role Phone Bear Knight MD Primary Care Provider Derik Cordero DO Unavailable [phone] Encounter Details Date Type Department Care Team (Late st Contact Info) Description 11/02/2024 Bamboo flowsheet [facility] OB [address] [facility] [address] Elvin Pina [address] [place], [place] [address] Social History Tobacco Use Types Packs/Day Years [...] 12/03/2024 2:30 PM EDT Office Visit [facility] OB [address] [facility] [address] Giovanna Baker PA [address] [place] [address] [place] [id number] documented as of this encounter Visit Diagnoses Not on filedocumented in this encounter Care Teams Manager Harbor Relationship Specialty Start Date End Date Bear Knight MD PCP - General Family Medicine 03/01/23 Derik Cordero DO [address] [place] [address] Otolaryngology 08/29/23 documented as of this encounter
--- NOTE | 2024-11-11 15:10 | XR_ITS ---
[address] [address] Patient Name: DANIEL BRUNER MRN: [id number] date: 1990 Sex: F Assigned Patient Location: [facility] Current Patient Location: [facility] Accession/Order Number: [id number] Exam Date: 11/11/2024 16:23 Report Date: 11/11/2024 16:23 At the request of: TOMI KAN DO Procedure: XR chest 2V Plain film chest 2 view HISTORY: Presurgical assessment COMPARISON: None FINDINGS: SUPPORT DEVICES: None POSTSURGICAL CHANGES: None HEART: Within normal limits PULMONARY LAURA: Within normal limits MEDIASTINUM: Unremarkable LUNGS AND PLEURA: No acute lung process, pleural effusion or pneumothorax identified. BONY STRUCTURES: Intact ADDITIONAL FINDINGS None XR/XR chest 2V IMPRESSION: No acute process. Impression dictated by: Haroon Bailey M.D. 11/11/2024 4:23 PM Dictation Location: [place] [address] Electronically authenticated by: [id number] Y Date: 11/11/2024 16:23
== END 2024-11-11 14:42 | disposition home or self-care (01) ==
LOC: PST 14:41
PROVIDERS: PCP Family Medicine; Visit Provider Obstetrics & Gynecology
DX: Z01.810 Encounter for preprocedural cardiovascular examination (principal); N92.0 Excessive and frequent menstruation with regular cycle; N93.9 Abnormal uterine and vaginal bleeding, unspecified; R10.2 Pelvic and perineal pain
CPT/HCPCS: 71046

== ENCOUNTER 2024-11-20 08:57 | Day surgery (SDC) | payer OTHER, SELFPAY ==
[2024-11-11 15:27] VITALS: BP 116/79; PULSE 85; TEMP 36.6; O2SAT 99; BMI 26.6
[2024-11-20] VITALS (7 sets, daily range): BP systolic 106–123; BP diastolic 63–84; PULSE 46–64; TEMP 36.1–36.3; O2SAT 95–100; BMI 27.1
[2024-11-20 09:09] LABS: Hematocrit 34.6 % (36.0-48.0); Hemoglobin 11.5 g/dL (12.0-16.0); Immature Granulocytes Abs Auto 0.01 10^3/uL (0.00-0.03); Immature Granulocytes Pct Auto 0.2 % (0.0-0.5); Lymphocytes Absolute Auto 2.6 10^3/uL (1.2-3.8); Mean Corpuscular HGB Conc 33.2 g/dL (29.9-35.2); Mean Corpuscular Hemoglobin 30.1 pg (26.7-34.0); Mean Corpuscular Volume 90.6 fL (81.0-99.0); Platelet Count 384 10^3/uL (150-450); Red Blood Count 3.82 10^6/uL (4.20-5.40); White Blood Count 5.9 10^3/uL (4.0-11.0)
[2024-11-20 09:15] LABS: Anion Gap 9.1; Blood Urea Nitrogen 6.0 mg/dL (7.0-18.0); Calcium 9.2 mg/dL (8.5-10.1); Carbon Dioxide 34.2 mmol/L (21.0-32.0); Chloride 104 mmol/L (98-107); Estimated GFR (African America >60 (>=60 mL/min/1.73m^2); Estimated GFR (Non-African Ame >60 (>=60 mL/min/1.73m^2); Glucose 96 mg/dL (74-106); Potassium 3.3 mmol/L (3.5-5.1); Sodium 144 mmol/L (136-145)
--- NOTE | 2024-11-20 11:03 | PM.ONB ---
Brief Operative Note Date of procedure: 11/20/24 Pre-op diagnosis general: menorrhagia Post-op diagnosis: same as pre-op Procedure: NAME OF PROCEDURE: [ ] Catia endometrial ablation with hysteroscopy. PROCEDURE: The patient was taken back to the OR where she was prepped and draped in the normal sterile fashion after being placed in the dorsal lithotomy position, after being placed under general anesthesia without difficulty.? A weighted speculum was placed into the vagina. The anterior lip was grasped with a single tooth tenaculum. The patient was then sounded to approximated 8cm. The patient?s cervix was gently dilated using hegar dilators. The hysteroscope was passed through the cervix into the uterus where both ostia were seen. No gross evidence of polyps, fibroids or malignancy. The cervical length was noted to be 4 cm. The total cavity length is 4cm.? The Catia ablation apparatus was set to approximately 4cm in length. This was placed through the cervix and into the uterus. After the seal was tested, at that time the total ablation of 120 seconds was performed with the Catia withoutdifficulty. All instruments were removed from the vagina. Excellent hemostasis noted.? Sponge and lap count correct times 2.? Patient taken to recovery in stable condition. Anesthesia: MAC Surgeon: Elvin Pina Estimated blood loss (mL): 5 Pathology: none sent Condition: stable Disposition: PACU Urinary Catheter Management Urinary Catheter Management Straight: Cath placed during this visit: no
--- NOTE | 2024-11-20 12:43 | PC.NURSE ---
PATIENT URINATED ORDERED CLEAR YELLOW URINE PRIOR TO DISCHARGE
== END 2024-11-20 12:42 | disposition home or self-care (01) ==
LOC: SURGOUT 08:58
PROVIDERS: PCP Family Medicine; Visit Provider Obstetrics & Gynecology
PROC: (CPT 952; principal; 2024-11-20 10:55)
DX: N92.0 Excessive and frequent menstruation with regular cycle (principal); N93.9 Abnormal uterine and vaginal bleeding, unspecified; R10.2 Pelvic and perineal pain; Z98.51 Tubal ligation status; Z90.49 Acquired absence of other specified parts of digestive tract; F17.290 Nicotine dependence, other tobacco product, uncomplicated; K21.9 Gastro-esophageal reflux disease without esophagitis
CPT/HCPCS: 58563; 36415; 80048; 84702; 85025; J1100; J1885; J2250; J2405; J2704; J3010

== ENCOUNTER 2024-12-19 09:25 | Emergency (ER) | payer OTHER, SELFPAY ==
[2024-12-19 09:28] VITALS: BP 133/76; PULSE 70; TEMP 36.7; O2SAT 100; BMI 25.5
--- OUTSIDE RECORDS SUMMARY | 2024-12-19 09:32 | XMS_ITS | Encounter Summary ---
Author Organization [facility] Address [facility] [id number] [address] [place] [address] Care Team Providers Care Entry Operator Name Role Phone Bear Knight Primary Care Provider [phone] Encounter Details Date Type Department Care Team (Late st Contact Info) Description 04/24/2023 Orders Only [facility] Internal Medicine - Family Medicine [address] [place] [address] External, Scanning Provider Social History Tobacco Use [...] documented as of this encounter Care Teams Entry Operator Relationship Specialty Start Date End Date Bera Knight DO [address] [facility] [place] [address] PCP - General Family Medicine 10/30/18 documented as of this encounter
--- OUTSIDE RECORDS SUMMARY | 2024-12-19 09:32 | XMS_ITS | Clinical Summary ---
Author Organization [facility] Address [address] [place] [address] Care Team Providers Care Rn Relief Charge Name Role Phone Bear Knight MD Primary Care Provider Derik Cordero DO Unavailable [phone] Allergies No known active allergies Medications Ventolin [...] Encounters Date Type Department Care Team Description 12/03/2024 2:30 PM EDT Office Visit [facility] [address] [place] [phone] Giovanna Baker PA Postop check 12/03/2024 Bamboo flowsheet [facility] [address] [place] [address] Giovanna Baker PA 11/20/2024 Abstract [facility] [address] [place] [address] Tomi Pina, DO 11/20/2024 Clinisync Result Encounter [facility] Department Unsolicited Tomi Pina, 11/11/2024 Clinisync Result Encounter [facility] External Department Unsolicited Tomi Pina, DO 11/11/2024 Telephone [facility] [address] [place] [phone] Linh Ahuja, CAKE PULLER 11/10/2024 Orders Only [facility] [address] [place] [phone] Ramona Marti, CAKE PULLER 11/09/2024 Telephone [facility] [address] [place] [phone] Tiesha Meza MA 11/02/2024 10:20 AM EDT Office Visit [facility] [address] [place] [phone] Tomi Pina, DO Well woman exam with routine gynecological exam 11/02/2024 Clinisync Result Encounter [facility] External Department Unsolicited Tomi Pina, 11/02/2024 Bamboo flowsheet [facility] [address] [place] [address] Tomi Pina, 10/27/2024 1:30 PM EDT Procedure Visit [facility] [place] [address] Tomi Pina, DO Pre-op examination; Menorrhagia with regular cycle; Abnormal uterine bleeding (AUB); Pelvic pain 10/27/2024 Abstract [facility] [address] [facility] [place] [address] Tomi Pina, 10/27/2024 External Result Encounter [facility] External Department Unsolicited Tomi Pina, 10/15/2024 Abstract [facility] [address] [place] [address] Tiesha Meza [place] 10/09/2024 External Result Encounter [facility] External Department Unsolicited Tomi Pina, DO 10/08/2024 Telephone [facility] [address] [place] [address] Linh Ahuja LPN from Last 3 Months Family History Medical [...] Sign Reading Time Taken Comments Blood Pressure 114/70 12/03/2024 2:32 PM EDT Pulse - - Temperature - - Respiratory Rate - - Oxygen Saturation - - Inhaled Oxygen Concentration - - Weight 76.4 kg (168 lb 6.4 oz) 12/03/2024 2:32 P M EDT Height 172.7 cm (5' 8 ) 08/29/2023 9:37 AM EDT Body Mass Index 25.61 08/29/2023 9:37 AM EDT Plan of Treatment Not on file Procedures Procedure Name Priority Date/Time Associated Diagnosis Comments [facility] PREG QUANT HCG Routine 11/20/2024 9: 04 AM EDT ALL BASIC METABOLIC PANEL Routine 11/20/2024 9:04 AM EDT ALL CBC WITH AUTO DIFF Routine 11/20/2024 9:04 AM EDT XR CHEST 2V 11/11/2024 4:23 PM EDT IGP,APTIMA HPV,AGE GDLN Routine 11/02/2024 10:02 AM [...] AUTO DIFFERENTIAL Routine 10/09/2024 11:26 AM EDT from Last 3 Months Results * [facility] PREG QUANT HCG (11/20/2024 9:04 AM EDT) HCG QUANTITATIVE <1 mIU/mL [facility] Comment: 5-50 0.2-1 WEEK 50-500 1-2 WEEKS 100-5,000 2-3 WEEKS 500-10,000 3-4 WEEKS 1,000-50,000 4-5 WEEKS 10,000-100,000 5-6 WEEKS 15,000-200,000 6-8 WEEKS 10,000-100,000 2-3 MONTHS 11/20/2024 9:04 AM EDT 11/20/2024 9:05 AM EDT Narrative [facility] - 11/20/2024 9:30 AM EDT us Tomi Yovani DO CL[facility] Final Result [facility] * (ABNORMAL) ALL CBC WITH AUTO DIFF (11/20/2024 9:04 AM EDT) Pathologist [facility] TB WBC 5.9 4.0 - 11.0 10 3/uL TBH TBH RBC 3.82(L) 4.20 - 5.40 10 6/uL TBH TBH HGB 11.5(L) 12.0 - 16.0 g/dL TBH TBH HCT 34.6(L) 36.0 - 48.0 % TBH TBH MCV 90.6 81.0 - 99.0 fL TBH TBH MCH 30.1 26.7 - 34.0 pg TBH TBH MCHC 33.2 29.9 - 35.2 g/dL TBH TBH RDW 12.1 11.0 - 15.0 % TBH TBH PLT 384 150 - 450 10 3/uL TBH TBH MPV 8.9(L) 9.5 - 13.5 fL TBH NEUTROPHILS PERCENT AUTO 44.8 43.0 - 75.0 % TBH LYMPHOCYTES PERCENT AUTO 44.0 20.5 - 60.0 % TBH MONOCYTES PERCENT AUTO 9.7 1.7 - 12.0 % TBH TBH EO % 1.0 0.9 - 7.0 % TBH BASOPHILS PERCENT AUTO 0.3 0.2 - 2.0 % TBH IMMATURE GRANULOCYTES PCT AUTO 0.2 0.0 - 0.5 % TBH NEUTROPHILS ABSOLUTE AUTO 2.6 1.4 - 6.5 10 3/uL TBH LYMPHOCYTES ABSOLUTE AUTO 2.6 1.2 - 3.8 10 3/uL TB[facility] MONOCYTES ABSOLUTE AUTO 0.6 0.3 - 0.8 10 3/uL TBH TBH EO # 0.1 0.0 - 0.7 10 3/uL TBH BASOPHILS ABSOLUTE AUTO 0.0 0.0 - 0.1 10 3/uL TB[facility] IMMATURE GRANULOCYTES ABS AUTO 0.01 0.00 - 0.03 10 3/uL TB[facility] 11/20/2024 9:04 AM EDT 11/20/2024 9:05 AM EDT Narrative [facility] - 11/20/2024 9:11 AM EDT us Tomi Pina DO [facility] * (ABNORMAL) ALL BASIC METABOLIC PANEL (11/20/2024 9:04 AM EDT) SODIUM 144 136 - 145 mmol/L TBH POTASSIUM 3.3(L) 3.5 - 5.1 mmol/L TB[facility] CHLORIDE 104 98 - 107 mmol/L TBH CARBON DIOXIDE 34.2(H) 21.0 - 32.0 mmol/L TBH ANION GAP 9.1 TBH GLUCOSE 96 74 - 106 mg/dL TBH BLOOD UREA NITROGEN 6.0(L) 7.0 - 18.0 mg/dL TB[facility] CREATININE 0.52(L) 0.55 - 1.02 mg/dL TBH TBH EGFR-AF SRI LANKAN >60 >=60 mL/min/1.7 3m 2 TBH TBH EGFR-NON AF SRI LANKAN >60 >=60 mL/min/1.7 3m 2 TBH BUN CREATININE RATIO 11.5 TBH CALCIUM 9.2 8.5 - 10.1 mg/dL TBH 11/20/2024 9:04 AM EDT 11/20/2024 9:05 AM EDT Narrative CLINISYNC - 11/20/2024 9:16 AM EDT us Tomi Pina DO [facility]NC Final Result [facility] * XR CHEST 2V (11/11/2024 4:23 PM EDT) Anatomical Region Laterality Modality Other 11/11/2024 4:23 PM EDT Narrative 11/11/2024 4:26 PM EDT [address] [address] XRay Report Signed Patient: BRIA MEEK MR#: [id number] : 1990 Acct:[id number] Age/Sex: 34 / F ADM Date: 11/11/24 Loc: PST Attending Dr: Tomi Pina D.O. Ordering Physician: Tomi Pina D.O. Date of Service: 11/11/24 Procedure(s): XR chest 2V Accession Number(s): [id number] cc: BEAR KNIGHT ; Tomi Pina D.O. [address] [address] Patient Name: BRIA MEEK MRN: [facility]:[id number] date: 1990 Sex: F Assigned Patient Location: [facility] Current Patient Location: [facility] Accession/Order Number: [id number] Exam Date: 11/11/2024 16:23 Report Date: 11/11/2024 16:23 At the request of: TOMI PINA DO Procedure: XR chest 2V Plain film chest 2 view HISTORY: Presurgical assessment COMPARISON: None FINDINGS: SUPPORT DEVICES: None POSTSURGICAL CHANGES: None HEART: Within normal limits PULMONARY LAURA: Within normal limits MEDIASTINUM: Unremarkable LUNGS AND PLEURA: No acute lung process, pleural effusion or pneumothorax identified. BONY STRUCTURES: Intact ADDITIONAL FINDINGS None XR/XR chest 2V IMPRESSION: No acute process. Impression dictated by: Haroon Bailey M.D. 11/11/2024 4:23 PM Dictation Location: [place] [address] Electronically authenticated by: [id number] Y Date: 11/11/2024 16:23 Dictated By: Haroon Bailey D.O. Signed By: 11/11/24 1626 DD/ 1623 TD/TT: Multimedia Programmer: Procedure Note Radiology, Radiologist, MD - 11/11/2024 [place] [address] XRay Report Signed Patient: BRIA MEEK RMR#: [id number] : 1990Acct:[id number] Age/Sex: 34 / FADM Date: 11/11/24 Loc: [facility] Attending Dr: Tomi Pina D.O. Ordering Physician: Tomi Pina D.O. Date of Service: 11/11/24 Procedure(s): XR chest 2V Accession Number(s): [id number] cc: BEAR KNIGHT ; Tomi Pina D.O. The [place] [id number] Patient Name: BRIA MEEK MRN: [facility]:[id number] date: 1990 Sex: F Assigned Patient Location: [facility] Current Patient Location: [facility] Accession/Order Number: [id number] Exam Date: 11/11/2024 16:23 Report Date: 11/11/2024 16:23 At the request of: TOMI PINA DO Procedure: XR chest 2V Plain film chest 2 view HISTORY: Presurgical assessment COMPARISON: None FINDINGS: SUPPORT DEVICES: None POSTSURGICAL CHANGES: None HEART: Within normal limits PULMONARY LAURA: Within normal limits MEDIASTINUM: Unremarkable LUNGS AND PLEURA: No acute lung process, pleural effusion or pneumothorax identified. BONY STRUCTURES: Intact ADDITIONAL FINDINGS None XR/XR chest 2V IMPRESSION: No acute process. Impression dictated by: Haroon Bailey M.D. 11/11/2024 4:23 PM Dictation Location: [place] [address] Electronically authenticated by: [id number] Y Date: 6:23 Dictated By: Haroon Bailey D.O. Signed By:11/11/246 DD/ 22 TD/TT: Multimedia Programmer: us Tomi Escaleramyra [facility] Final Result * IGP,APTIMA HPV,AGE GDLN (11/02/2024 10:02 AM EDT) AGE GDLN ACOG TESTING Note . [facility] Comment: TESTS RESULT FLAG UNITS REF RANGE LAB Clinician Provided Cytology Information Source.............Cervix;Endocervix No. of containers..01 ThinPrep Vial Age Algo ACOG Maryjane... FLAG LEGEND: L-Low Normal,H-High Normal,LL-Alert Low,HH-Alert High <-Panic Low,>-Panic High,A-Abnormal,AA-Critical Abnormal Performed at: 01 =G [address] [place] [address] Patricia Anderson MD, IGP, APTIMA HPV, RFX 16/18,45 Note . [facility] Comment: TESTS RESULT FLAG UNITS REF RANGE LAB DIAGNOSIS: 02 NEGATIVE FOR INTRAEPITHELIAL LESION OR MALIGNANCY. Specimen adequacy: 02 Satisfactory for evaluation. Endocervical and/or squamous metaplastic cells (endocervical component) are present. Performed by: Taisha Peña, Truck Service Manager ([facility]) . 02 Note: Note 02 The Pap [...] <-Panic Low,>-Panic High,A-Abnormal,AA-Critical Abnormal Performed at: [address] [address] Patricia Anderson MD, HPV APTIMA Negative Negative [facility] Comment: This nucleic acid amplification test detects fourteen high- risk HPV types (16,18,31,33,35,39,45,51,52,56,58,59,66,68) without differentiation. Performed at: =[address] [id number] [employer] Riveting Machine Operator: Patricia Anderson MD, Phone: [phone] Performed at: [address] [id number] [employer] Machine Operator: Patricia Anderson MD, Phone: [phone] 11/02/2024 10:0 2 AM EDT 11/02/2024 12:08 PM EDT Narrative [facility]INISYNC - 11/04/2024 3:09 PM EDT BRUSH-SPATULA CERVIX ENDOCERVIX Hamstersofto DO LAB BLOOD ORDERABLES Final Resul t Performing Organization Address [facility]/ZIP Co de Phone Number [facility] * Pap Smear (11/02/2024 12:00 AM EDT) Swab Cervical swab / Unknown Hamstersofto DO LAB CYTOLOGY ORDERABLES Final Re sult EXTERNAL LAB * POCT , urine manually resulted (10/27/2024 2:16 PM EDT) Preg Test, Ur Negative Negative Urine 10/27/2024 2:16 PM EDT Hamstersofto DO POINT OF CARE TEST ENTER/EDIT OR DERABLES Final Result * PATHOLOGY REQUEST FOR LAB HANNA (10/27/2024 12:00 AM EDT) PATHOLOGY REQUEST FOR LAB HANNA 2024 8:24 AM EDT [facility] Comment:See report. Scanned copy available in EMR. Other Topography unknown / Unknown 10/27/2024 10/28/2024 1:11 PM EDT Narrative [facility] - 2024 8:24 AM EDT EMB us Tomi Yovani DO LAB BLOOD ORDERABLES Final Resul t Performing Organization Address City/State/[facility] Co de Phone Number [facility] [address] [place] [address], [facility] [address] [place] [phone] * US pelvis transvaginal (10/14/2024 4:09 PM EDT) Anatomical Region Laterality Modality Pelvis Ultrasound 10/14/2024 4:09 PM EDT Narrative 10/14/2024 4:08 PM EDT THIS EXAM WAS PERFORMED AT [facility] Clinical history: Pelvic pain Findings:Transabdominal ultrasound was [...] - 10/14/2024 THIS EXAM WAS PERFORMED AT [facility] Clinical history: Pelvic pain Findings:Transabdominal ultrasound was [...] Fitzgerald MD on 10/14/2024 4:08 PM us Tomi Yovani DO IMG US PROCEDURES Final Result * DHEA-sulfate (10/13/2024 2:43 PM EDT) Only the most recent of2 resultswithin the time period is included. Blood Venous blood specimen / Unknown us Tomi Yovani DO LAB BLOOD ORDERABLES Final Resul t Performing Organization Address City/[facility] Co de Phone Number EXTERNAL LAB * CBC and differential (10/13/2024 2:43 PM EDT) Blood Venous blood specimen / Unknown us Tomi Yovani DO LAB BLOOD ORDERABLES Final Resul t Performing Organization Address [facility] Co de Phone Number EXTERNAL LAB * hCG, quantitative, (10/13/2024 2:43 PM EDT) Blood Venous blood specimen / Unknown us Tomi Yovani DO LAB BLOOD ORDERABLES Final Resul t Performing Organization Address [facility] Co de Phone Number EXTERNAL LAB * TSH (10/13/2024 2:43 PM EDT) Only the most recent of2 resultswithin the time period is included. Blood Venous blood specimen / Unknown us Tomi Yovani DO LAB BLOOD ORDERABLES Final Resul t Performing Organization Address [facility] Co de Phone Number EXTERNAL LAB * T4, free (10/13/2024 2:43 PM EDT) Blood Venous blood specimen / Unknown us Tomi Yovani DO LAB BLOOD ORDERABLES Final Resul t Performing Organization Address [facility] de Phone Number EXTERNAL LAB * Hemoglobin A1c (10/13/2024 2:43 PM EDT) Only the most recent of2 resultswithin the time period is included. Blood Venous blood specimen / Unknown us Tomi Yovani DO LAB BLOOD ORDERABLES Final Resul t Performing Organization Address [facility] de Phone Number EXTERNAL LAB * Luteinizing hormone (10/13/2024 2:43 PM EDT) Only the most recent of2 resultswithin the time period is included. Blood Venous blood specimen / Unknown us Tomi Yovani DO LAB BLOOD ORDERABLES Final Resul t Performing Organization Address [facility] de Phone Number EXTERNAL LAB * Follicle stimulating hormone (10/13/2024 2:43 PM EDT) Only the most recent of2 resultswithin the time period is included. Blood Venous blood specimen / Unknown us Tomi Yovani DO LAB BLOOD ORDERABLES Final Resul t Performing Organization Address [facility] de Phone Number EXTERNAL LAB * DEHYDROEPIANDROSTERONE, S (10/09/2024 11:26 AM EDT) DEHYDROEPIANDROSTERO NE, S 4.2 <10 ng/mL [facility] Comment: ADDITIONAL INFORMATION This test was developed and its performance characteristics determined by [facility] in a manner consistent with CLIA requirements. This test has not been cleared or approved by the U.S. Food and Drug Administration. Test Performed by: [facility] [address] [place] [address] [employer] Riveting Machine Operator: Jose Ogden Ph.D.; IA# [id number] 10/09/2024 11:2 6 AM EDT 10/09/2024 1:11 PM EDT Tomi Yovani DO LAB BLOOD ORDERABLES Final Resul t [facility] * SERUM B HCG, 3RD I.S. [...] for trophoblastic or nontrophoblastic neoplasms. PERFORMED AT [facility] [address],[place] [address] 10/09/2024 11:2 6 AM EDT 10/09/2024 1:11 PM EDT us Tomi Yovani DO LAB BLOOD ORDERABLES Final Resul [...] TYPE AUTOMATED DIFFERENTIAL [facility] Comment: PERFORMED AT [facility] [address],[place] [address] 10/09/2024 11:2 6 AM EDT 10/09/2024 1:11 PM EDT us Tomi Yovani DO LAB BLOOD ORDERABLES Final Resul t [facility] from Last 3 Months Insurance [facility] Care Teams Rn Relief Charge Relationship Specialty Start Date End Date Bear Knight MD PCP - General Family Medicine 03/01/23 Derik Cordero DO [address] [place] [address] Otolaryngology 08/29/23
--- OUTSIDE RECORDS SUMMARY | 2024-12-19 09:32 | XMS_ITS | Clinical Summary ---
Author Organization [facility] [employer] [facility] tem Address [id number] [address] [place] [address] Care Team Providers Care Seed Mill Superintendent Name Role Phone Bear Knight Primary Care Provider [phone] Allergies No known active allergies Medications albuterol [...] Encounters Date Type Department Care Team Description 11/17/2024 Telephone [facility] Internal Medicine - Family Medicine [address] [place] [phone] Feliz Cook CMA 10/13/2024 1:39 PM EDT - 10/13/2024 11:59 PM EDT Hospital Encounter [facility] - Ultrasound [address] [place] [phone] Elvin Pina, Pelvic pain in female Discharge Disposition: Home [...] MD on 10/14/2024 4:08 PM us Elvin Pina DO [facility] [place] ORDERABLES Final Result * Dehydroepiandrosterone, Serum (DHEA) (10/09/2024 11:26 AM EDT) DEHYDROEPIANDROSTER ONE, S 4.2 <10 ng/mL 10/13/2024 1:58 PM EDT [facility] [employer] Comment: ADDITIONAL INFORMATION This test was developed and its performance characteristics determined by [facility] in a manner consistent with CLIA requirements. This test has not been cleared or approved by the U.S. Food and Drug Administration. Test Performed by: [facility] [address] [place] [id number] Educational Director: Jose Ogden Ph.D.; CLIA# [id number] Blood Venous blood / Unknown Venipuncture / Unknown 10/09/2024 11:26 AM EDT 10/09/2024 11:27 AM EDT Elvin R Yovani DO LAB BLOOD ORDERABLES Final Resu lt [facility] [address] [place] [address], [place] * Thyroid profile includes TSH FT4 (10/09/2024 11:26 AM EDT) FREE T4 0.92 0.61 - 1.60 ng/dL 10/09/2024 6:43 PM EDT [facility] TSH 1.69 0.49 - 4.67 uIU/mL 10/09/2024 6:43 PM EDT [facility] Blood Venous blood / Unknown Venipuncture / Unknown 10/09/2024 11:26 AM EDT 10/09/2024 11:27 AM EDT Elvin R Yovani DO LAB BLOOD ORDERABLES Final Resu lt [facility] [address] [place] [id number], [place] [phone] * CBC auto differential (10/09/2024 11:26 AM EDT) WBC 4.5 4 - 11 x10E9/L 10/09/2024 2:53 PM EDT [facility] RBC Count 3.85 3.8 - 5.2 X10E12/L 10/09/2024 2:53 PM EDT [facility] Hemoglobin 11.8 11.7 - 15.5 g/dL 10/09/2024 2:53 PM EDT [facility] Hematocrit 35.0 35 - 47 % 10/09/2024 2:53 PM EDT [facility] MCV 91 80 - 100 fL 10/09/2024 2:53 PM EDT [facility] MCH 30.6 27 - 34 pg 10/09/2024 2:53 PM EDT [facility] MCHC 33.7 32 - 36 g/dL 10/09/2024 2:53 PM EDT [facility] RDW 13.1 11.5 - 15 % 10/09/2024 2:53 PM EDT [facility] Platelet Count 274 150 - 450 X10E9/L 10/09/2024 2:53 PM EDT [facility] MPV 8.3 7 - 12 fL 10/09/2024 2:53 PM EDT [facility] Neutrophils % 54.6 % 10/09/2024 2:53 PM EDT [facility] Lymphocytes % 31.6 % 10/09/2024 2:53 PM EDT [facility] Monocytes % 10.3 % 10/09/2024 2:53 PM EDT [facility] Eosinophils % 2.3 % 10/09/2024 2:53 PM EDT [facility] Basophils % 1.2 % 10/09/2024 2:53 PM EDT [facility] Neutrophils Absolute (A) 2.4 1.5 - 6.6 10*3/uL 10/09/2024 2:53 PM EDT [facility] Lymphocytes Absolute 1.4 1.0 - 3.5 10*3/uL 10/09/2024 2:53 PM EDT [facility] Monocytes Absolute 0.5 0.0 - 0.9 10*3/uL 10/09/2024 2:53 PM EDT [facility] Eosinophils Absolute 0.1 0.0 - 0.4 10*3/uL 10/09/2024 2:53 PM EDT [facility] Basophils Absolute 0.1 0.0 - 0.2 10*3/uL 10/09/2024 2:53 PM EDT [facility] Differential Type AUTOMATED DIFFERENTIAL 10/09/2024 2:53 PM EDT [facility] Blood Venous blood / Unknown Venipuncture / Unknown 10/09/2024 11:26 AM EDT 10/09/2024 11:27 AM EDT Elvin R Yovani DO LAB BLOOD ORDERABLES Final Resu lt [facility] [address] [place] [address], * DHEA-sulfate (10/09/2024 11:26 AM EDT) DHEA S 120 23 - 266 ug/dL 10/09/2024 6:39 PM EDT [facility] Blood Venous blood / Unknown Venipuncture / Unknown 10/09/2024 11:26 AM EDT 10/09/2024 11:27 AM EDT Elivn R Yovani LAB BLOOD ORDERABLES Final Resu lt [facility] [address] [place] [address], [place] [phone] * hCG, quantitative, (10/09/2024 11:26 AM EDT) SERUM B HCG,3RD I.S. <5 mIU/mL 10/09/2024 6:27 PM EDT [facility] Blood Venous blood / Unknown Venipuncture / Unknown 10/09/2024 11:26 AM EDT 10/09/2024 11:27 AM EDT Narrative [facility] - 10/09/2024 6:27 PM EDT [...] necessarily diagnostic for trophoblastic or nontrophoblastic neoplasms. [employer] LAB BLOOD ORDERABLES Final Resu lt Performing Organization Address City/[facility]/ZIP Co de Phone Number [facility] [address] [place] [address], * Hemoglobin A1c (10/09/2024 11:26 AM EDT) Pathologist [facility] HEMOGLOBIN A1C 5.2 4.4 - 5.6 % 10/09/2024 3:37 PM EDT [facility] Comment: ADA Guidelines Result HgbA1c Normal : less than 5.7 % Prediabetes : 5.7 % to 6.4 % Diabetes : > 6.4 % Use with caution in patients with abnormal hemoglobin variants as the half-life of red blood cells and in vivo glycation rates are affected. EST. AVERAGE GLUCOSE 103 mg/dL 10/09/2024 3:37 PM EDT [facility] Blood Venous blood / Unknown Venipuncture / Unknown 10/09/2024 11:26 AM EDT 10/09/2024 11:27 AM EDT [employer] LAB BLOOD ORDERABLES Final Resu lt Performing Organization Address [facility]/ZIP Co de Phone Number [facility] [address] [place] [address], [place] [phone] * Luteinizing hormone (10/09/2024 11:26 AM EDT) Pathologist [facility] LUTEINIZING HORMONE 3.5 mIU/mL 10/09/2024 7:06 PM EDT [facility] Blood Venous blood / Unknown Venipuncture / Unknown 10/09/2024 11:26 AM EDT 10/09/2024 11:27 AM EDT Narrative [facility] - 10/09/2024 7:06 PM EDT NORMAL FEMALE Follicular 2.1-10.9 mIU/mL Mid Cycle 19.2-103 mIU/mL Luteal 1.2-12.9 mIU/mL [place] 10.9-58.6 mIU/mL Elvin R [employer] DO LAB BLOOD ORDERABLES Final Resu lt Performing Organization Address City/[facility]/ZIP Co de Phone Number [facility] [address] [place] [address], [place] [phone] * Follicle stimulating hormone (10/09/2024 11:26 AM EDT) FOLLICLE STIM HORMONE 5.6 mIU/mL 10/09/2024 7:05 PM EDT [facility] Blood Venous blood / Unknown Venipuncture / Unknown 10/09/2024 11:26 AM EDT 10/09/2024 11:27 AM EDT Narrative [facility] - 10/09/2024 7:05 PM EDT NORMAL FEMALE: Luteal 1.8-5.1 mIU/mL Follicular 3.8-8.8 mIU/mL Mid Cycle 4.5-22.5 mIU/mL [facility] [place] 16.7-113.6 mIU/mL Elvin R Yovani DO LAB BLOOD ORDERABLES Final Resu lt [facility] [address] [place] [address], [place] [phone] from Last 3 Months Insurance [facility] Care Teams [employer] Superintendent Relationship Specialty Start Date End Date Bear Knight DO [address] [facility], [place] [address] PCP - General Family Medicine 10/30/18
--- OUTSIDE RECORDS SUMMARY | 2024-12-19 09:32 | XMS_ITS | Encounter Summary ---
Author Organization [facility] Address [address] [place] [address] [place] [address] Care Team Providers Care Peeler Operator Name Role Phone Bear Knight MD Primary Care Provider [phone] Derik Cordero DO Unavailable [phone] Encounter Details Date Type Department Care Team (Late st Contact Info) Description 02/22/2023 Abstract [facility] [address] [place] [address] Zaira Griffin, AUD [address] [place] [address] Social History Tobacco Use Types Packs/Day Years [...] on filedocumented in this encounter Care Teams Peeler Operator Relationship Specialty Start Date End Date Bear Knight MD PCP - General Family Medicine 03/01/23 Derik Cordero DO [address] [place] [address] Otolaryngology 08/29/23 documented as of this encounter
--- OUTSIDE RECORDS SUMMARY | 2024-12-19 09:32 | XMS_ITS | Encounter Summary ---
Author Organization [employer] Address [id number] [address] [place] [address] Care Team Providers Care Rug Hooker Hand Name Role Phone Bear Knight Primary Care Provider [phone] Encounter Details Date Type Department Care Team (Late st Contact Info) Description 01/15/2022 Orders Only [facility] [address] [address] [facility] [facility] [address] [place] [address] Char Meneses Dysfunction of both [...] tubes documented in this encounter Care Teams Rug Hooker Hand Relationship Specialty Start Date End Date Bear Knight DO [address] [facility], [place] [address] PCP - General Family Medicine 10/30/18 documented as of this encounter
--- OUTSIDE RECORDS SUMMARY | 2024-12-19 09:32 | XMS_ITS | Encounter Summary ---
Author Organization [facility] Address [address] [facility] [place] [address] Care Team Providers Care Consulting Business Developer Name Role Phone Bear Knight MD Primary Care Provider [phone] Derik Cordero DO Unavailable [phone] Encounter Details Date Type Department Care Team (Late st Contact Info) Description 10/27/2024 Abstract [facility] [address] [place] [address] Elvin Pina DO [address] [place] [address] Social History Tobacco Use Types Packs/Day Years [...] on filedocumented in this encounter Care Teams Consulting Business Developer Relationship Specialty Start Date End Date Bear Knight MD PCP - General Family Medicine 03/01/23 Derik Cordero DO [address] [place] [address] Otolaryngology 08/29/23 documented as of this encounter
--- OUTSIDE RECORDS SUMMARY | 2024-12-19 09:32 | XMS_ITS | Encounter Summary ---
Author Organization [facility] Address [address] [place] [address] [place] [address] Care Team Providers Care Bpm Developer Name Role Phone Bear Knight MD Primary Care Provider [phone] Derik Cordero DO Unavailable [phone] Encounter Details Date Type Department Care Team (Late st Contact Info) Description 10/15/2024 Abstract [facility] [address] [place] [address] [place] [address] Derrick [place], [place] Social History Tobacco Use Types Packs/Day [...] on filedocumented in this encounter Care Teams Bpm Developer Relationship Specialty Start Date End Date Bear Knight MD PCP - General Family Medicine 03/01/23 Derik Cordero DO [address] [place] [address] Otolaryngology 08/29/23 documented as of this encounter
--- OUTSIDE RECORDS SUMMARY | 2024-12-19 09:32 | XMS_ITS | Encounter Summary ---
Author Organization [facility] Address [id number] [address] [place] [address] Care Team Providers Care Occupational Health Physiotherapist Name Role Phone Bear Knight Primary Care Provider + [phone] Encounter Details Date Type Department Care Team (Late st Contact Info) Description 05/07/2023 Orders Only [facility] Internal Medicine - Family Medicine [address] [place] [address] Yocasta Larkin, APPLE PACKING HEADER-ENERGY RATER [address] [place] [address] Chronic dysfunction of right eustachian tube; High [...] Results * Ambulatory referral to ENT (05/03/2023) Yocasat Larkin APPLE PACKING HEADER-ENERGY RATER OUTPATIENT REFERRAL ORDE ASHLY Final Result MANUALLY TRANSCRIBED RESULTS documented in this encounter Visit Diagnoses Diagnosis Chronic dysfunction of right eustachian tube 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
--- OUTSIDE RECORDS SUMMARY | 2024-12-19 09:32 | XMS_ITS | Encounter Summary ---
Author Organization [facility] Address [address] [place] [address] [place] [address] Care Team Providers Care Associate Field Service Engineer Name Role Phone Bear Knight MD Primary Care Provider [phone] Derik Cordero DO Unavailable [phone] Encounter Details Date Type Department Care Team (Late st Contact Info) Description 11/10/2024 Orders Only [facility] [address] [place] [address] Ramona Marti LPN [address] [place] [address] Social History Tobacco Use Types Packs/Day Years [...] AM EDT) Swab Cervical swab / Unknown us Elvin Yovani DO LAB CYTOLOGY ORDERABLES Final Re sult EXTERNAL LAB documented in this encounter Visit Diagnoses Not on filedocumented in this encounter Care Teams Associate Field Service Engineer Relationship Specialty Start Date End Date Bear Knight MD PCP - General Family Medicine 03/01/23 Derik Cordero DO [address] [place] [address] Otolaryngology 08/29/23 documented as of this encounter
--- OUTSIDE RECORDS SUMMARY | 2024-12-19 09:32 | XMS_ITS | Clinical Summary ---
Author Organization [facility] Address [address] [place] [address] Care Team Providers Care Learning Officer Name Role Phone Nuno Felix Primary Care Provider [phone] Allergies No known active allergies Medications montelukast [...] 3-dose series) 11/03 Cervical Cancer Screening 11/04/2011 HPV Vaccine (1 - 3-dose SCDM series) 2017 Influenza Vaccine (#1) 2025 Insurance BLUE CARD PPO OOS Member Subscriber Plan / Payer (Ef fective 2015-Present) Name:Daniel Bruner Relation to Subscriber:Child Name:NUNO BRUNER Date of :1967 (Home) Address: [address] [place] [address] Payer ID:[id number] (NAIC) Type:PPO Address: [address] CHOICE PLUS Care Teams Learning Officer Relationship Specialty Start Date End Date Nuno Felix DO PCP - General Family Medicine 07/15/15
--- OUTSIDE RECORDS SUMMARY | 2024-12-19 09:32 | XMS_ITS | Encounter Summary ---
Author Organization [employer] Address [id number] [address] [place] [address] Care Team Providers Care Chemical Inspector Name Role Phone Bear Knight Primary Care Provider + [phone] Encounter Details Date Type Department Care Team (Late st Contact Info) Description 11/17/2024 Telephone [facility] Internal Medicine - Family Medicine [address] [place] [address] Feliz Cook CMA Social History Tobacco Use Types Packs/Day Years [...] AM EDT documented as of this encounter Miscellaneous Notes * Telephone Encounter - Feliz Cook CMA - 11/17/2024 10:50 AM EDT ----- Message from Bear Knight DO sent at 11/09/2024 11:11 PM EDT ----- Regarding: wellness Please set up. Can see PARTY HOST Could not leave Message at this time documented in this encounter Plan of Treatment Not on file documented as of this encounter Visit Diagnoses Not on filedocumented in this encounter Additional Health Concerns Assessment Noted Time PHQ-9 Depression Total Score: 0 03/12/20 23 11:14 AM EST documented as of this encounter Care Teams Chemical Inspector Relationship Specialty Start Date End Date Bear Knight DO [address] [facility] [place] [address] PCP - General Family Medicine 10/30/18 documented as of this encounter
--- OUTSIDE RECORDS SUMMARY | 2024-12-19 09:32 | XMS_ITS | Encounter Summary ---
Author Organization [facility] Address [address] [place] [address] Care Team Providers Care Chartered Wealth Manager Name Role Phone Bear Knight MD Primary Care Provider [phone] Derik Cordero DO Unavailable [phone] Encounter Details Date Type Department Care Team (Late st Contact Info) Description 11/20/2024 Abstract [facility] [address] [place] [address] Elvin Pina DO [address] [facility] [place] [address] Social History Tobacco Use Types Packs/Day Years [...] on filedocumented in this encounter Care Teams Chartered Wealth Manager Relationship Specialty Start Date End Date Bear Knight MD PCP - General Family Medicine 03/01/23 Derik Cordero DO [address] [place] [address] Otolaryngology 08/29/23 documented as of this encounter
--- NOTE | 2024-12-19 09:35 | ECG_ITS ---
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 Measurements Intervals [place] Rate: 63 P: 34 RI: 176 QRS: 63 QRSD: 76 T: 55 QT: 364 QTc: 371 Interpretive Statements 1100 Sinus rhythm 9110 normal ECG No previous ECG available for comparison Electronically Signed On 12-19-2024 15:17:00 EDT by ELOY MORENO M.D.
--- NOTE | 2024-12-19 09:36 | ED_ITS ---
HPI HPI - General Adult General Chief complaint: Abdominal Pain Stated complaint: BILATERAL LOWER RIB PAIN Time Seen by Provider: 12/19/24 09:27 Source: patient Mode of arrival: walk-in History of Present Illness HPI narrative: 34-year-old female presented to the emergency department for abdominal pain. It is bilateral under her ribs and she has had it for about 45 minutes. She worked last night and did not have any pain and she got home and took a shower and was laying down to go to sleep when it started. No trauma or fever. No lower abdominal pain. Denies constipation or diarrhea or dysuria. Related Data Home Medications ?Medication ?Instructions ?Recorded ?Confirmed fluticasone 100 mcg-salmeterol 50 1 inh inhalation BID 11/07/24 11/20/24 mcg/dose blistr powdr for inhalation (Advair Diskus) albuterol sulfate 90 mcg/actuation 2 inh inhalation Q6 H PRN shortness 11/11/24 11/20/24 aerosol inhaler of breath or wheezing Allergies Allergy/AdvReac Type Severity Reaction Status Date / Time No Known Drug Allergies Allergy Verified 11/11/24 15:02 Opioid HPI Opioid Management Most Recent Opioid Data: Last Pain Scale 9 Today, 09:32 Review of Systems ROS Narrative A ten point review of systems is negative except as noted above. PFSH [facility] Medical History (Updated 12/19/24 @ 12:13 by Surya Julien MD) Ankle sprain ?S93.409A - Sprain of unspecified ligament of unspecified ankle, initial encounter (ICD-10) Knee pain ?M25.569 - Pain in unspecified knee (ICD-10) Arthritis ?M19.90 - Unspecified osteoarthritis, unspecified site (ICD-10) Asthma ?J45.909 - Unspecified asthma, uncomplicated (ICD-10) Migraine ?G43.909 - Migraine, unspecified, not intractable, without status migrainosus (ICD-10) Kidney stones ?N20.0 - Calculus of kidney (ICD-10) Pelvic pain ?R10.2 - Pelvic and perineal pain (ICD-10) Menorrhagia ?N92.0 - Excessive and frequent menstruation with regular cycle (ICD-10) Abnormal uterine bleeding ?N93.9 - Abnormal uterine and vaginal bleeding, unspecified (ICD-10) Heartburn ?R12 - Heartburn (ICD-10) Hypokalemia ?E87.6 - Hypokalemia (ICD-10) Surgical History (Updated 11/11/24 @ 15:06 by Rekha Bain NP) History of tubal ligation ?Z98.51 - Tubal ligation status (ICD-10) History of cholecystectomy ?Z90.49 - Acquired absence of other specified parts of digestive tract (ICD- 10) History of arthroscopy of knee ?Z98.890 - Other specified postprocedural states (ICD-10) History of myringotomy ?Z98.890 - Other specified postprocedural states (ICD-10) Family History (Updated 11/11/24 @ 15:06 by Rekha Bain NP) Other Family history of Parkinson disease Family history of diabetes mellitus Family history of hypertension Family history of stroke Social History (Updated 11/11/24 @ 15:04 by Rekha Bain NP) Within the past year, how often did you have a drink containing alcohol: never Score interpretation: A score less than 3 is consistent with normal alcohol consumption. 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 General: The patient appears well and in no apparent distress. Patient is resting comfortably on cart. Skin: Warm, dry, no pallor noted. There is no rash noted. Head: Normocephalic, atraumatic Eye: Normal conjunctiva, no drainage Ears, Nose, Mouth, and Throat: oral mucosa is moist. Nares patent. Cardiovascular: Regular Rate and Rhythm Respiratory: Patient is in no distress, no accessory muscle use, lungs are clear to auscultation, no wheezing, rales or rhonchi Back: non-tender GI: No distention or masses. She seems to have some tenderness in the bilateral upper abdominal region. No tenderness in the lower abdomen. Musculoskeletal: The patient has no evidence of calf tenderness, no pitting edema, symmetrical pulses noted bilaterally Neurological: A&O, normal speech Psychiatric: Cooperative Constitutional Vital Signs, click to edit/add: Last Vital Signs Temp 98.1 F 12/19/24 09:28 Pulse 70 12/19/24 09:28 Resp 18 12/19/24 09:28 BP 133/76 12/19/24 09:28 Pulse Ox 100 12/19/24 09:28 Course Vital Signs Vital signs: Vital Signs Temperature 98.1 F 12/19/24 09:28 Pulse Rate 70 12/19/24 09:28 Respiratory Rate 18 12/19/24 09:28 Blood Pressure 133/76 12/19/24 09:28 Pulse Oximetry 100 12/19/24 09:28 Temperature 98.1 F 12/19/24 09:28 Pulse Rate 70 12/19/24 09:28 Respiratory Rate 18 12/19/24 09:28 Blood Pressure 133/76 12/19/24 09:28 Pulse Oximetry 100 12/19/24 09:28 Medical Decision Making MDM Narrative Medical decision making narrative: Blood work and x-rays and urinalysis are all negative. She is not . She was given a GI cocktail and seems to be improved. She is able to be discharged home. Follow-up with PCP if symptoms do not improve. Treatment diagnosis and follow-up were discussed thoroughly. Differential Diagnosis Differential Diagnosis: Constipation, gastritis, pancreatitis, hepatitis Lab Data Lab results reviewed: Yes I reviewed the patient's lab results Labs: Lab Results 12/19/24 12/19/24 Range/Units 09:50 10:55 WBC 6.8 (4.0-11.0) 10^3/uL RBC 3.85 L (4.20-5.40) 10^6/uL Hgb 12.1 (12.0-16.0) g/dL Hct 35.4 L (36.0-48.0) % MCV 91.9 (81.0-99.0) fL MCH 31.4 (26.7-34.0) pg MCHC 34.2 (29.9-35.2) g/dL RDW 13.7 (11.0-15.0) % Plt Count 283 (150-450) 10^3/uL MPV 9.3 L (9.5-13.5) fL Neut % (Auto) 63.6 (43.0-75.0) % Lymph % (Auto) 26.1 (20.5-60.0) % [place] % (Auto) 9.4 (1.7-12.0) % Eos % (Auto) 0.4 L (0.9-7.0) % Baso % (Auto) 0.4 (0.2-2.0) % Neut # (Auto) 4.3 (1.4-6.5) 10^3/uL Lymph # (Auto) 1.8 (1.2-3.8) 10^3/uL [place] # (Auto) 0.6 (0.3-0.8) 10^3/uL Eos # (Auto) 0.0 (0.0-0.7) 10^3/uL Baso # (Auto) 0.0 (0.0-0.1) 10^3/uL Abs Immat Gran (auto) 0.01 (0.00-0.03) 10^3/uL Imm/Tot Granulo (auto) 0.1 (0.0-0.5) % Sodium 142 (136-145) mmol/L Potassium 3.2 L (3.5-5.1) mmol/L Chloride 102 (98-107) mmol/L Carbon Dioxide 26.5 (21.0-32.0) mmol/L Anion Gap 16.7 BUN 7.0 (7.0-18.0) mg/dL Creatinine 0.64 (0.55-1.02) mg/dL Est GFR ( Amer) >60 (>=60 mL/min/1.73m^2) Est GFR (Non-Af Amer) >60 (>=60 mL/min/1.73m^2) BUN/Creatinine Ratio 10.9 Glucose 88 (74-106) mg/dL Calcium 9.3 (8.5-10.1) mg/dL Total Bilirubin 0.6 (0.2-1.0) mg/dL Direct Bilirubin 0.2 (0.0-0.2) mg/dL AST 28 (15-37) U/L ALT 23 (14-59) U/L Alkaline Phosphatase 68 (46-116) U/L Total Protein 7.9 (6.4-8.2) g/dL Albumin 4.3 (3.4-5.0) g/dL Globulin 3.6 g/dL Albumin/Globulin Ratio 1.2 Amylase 35 (25-115) U/L Lipase 29.0 (16.0-77.0) U/L Serum HCG, Qual Negative (NEGATIVE) Urine Color Yellow (YELLOW) Urine Clarity Clear (CLEAR) Urine pH 6.5 (5.0-9.0) Ur Specific [place] 1.025 (1.005-1.025) Urine Protein Trace (NEG/TRACE) mg/dL Urine Glucose (UA) Negative (NEGATIVE) mg/dL Urine Ketones 15 A (NEGATIVE) mg/dL Urine Occult Blood Negative (NEGATIVE) Urine Nitrite Negative (NEGATIVE) Urine Bilirubin Negative (NEGATIVE) Urine Urobilinogen 2.0 A (0.2-1.0) EU/dL Ur Leukocyte Esterase Negative (NEGATIVE) Urine RBC None seen (0-2) #/HPF Urine WBC 2-5 A (NONE SEEN) #/HPF Ur Squamous Epith Cells Moderate A (NONE/RARE) #/LPF Urine Crystals None seen (None Seen) #/HPF Urine Bacteria Trace A (NONE SEEN) #/HPF Urine Casts None seen (NONE SEEN) #/LPF Urine Mucus Large A (NONE SEEN) Ur Culture Indicated? No Imaging Data Abdominal x-ray: Radiologist's impression: ITS Impressions Abdomen X-Ray 12/19/24 10:35 IMPRESSION: No acute process. Impression dictated by: Anthony León Jr., D.O. 12/19/2024 10:59 AM Dictation Location: [id number] Electronically authenticated by: [id number] Y Date: 12/19/2024 10:59 ECG Data Attestation: I personally reviewed and interpreted this ECG as follows: (EKG on my interpretation shows normal sinus rhythm with a rate of 63 and no acute change) Discharge Plan Discharge Chief Complaint: Abdominal Pain Clinical Impression: Abdominal pain Patient Disposition: Home, Self-Care Time of Disposition Decision: 12:13 Condition: Good Mode of Transportation: Private Vehicle Prescriptions / Home Meds: No Action albuterol sulfate 90 mcg/actuation HFA aerosol inhaler 2 inh inhalation Q6H PRN (Reason: shortness of breath or wheezing) fluticasone propion-salmeterol [Advair Diskus] 100-50 mcg/dose blister with device 1 inh inhalation BID Print Language: Hebrew Instructions: Abdominal Pain (ED) Referrals: FURLONG,JANES G [Primary Care Provider, Family Practice] - 1 week
[2024-12-19 09:45] VITALS: PULSE 63
[2024-12-19 10:01] LABS: Hematocrit 35.4 % (36.0-48.0); Hemoglobin 12.1 g/dL (12.0-16.0); Immature Granulocytes Abs Auto 0.01 10^3/uL (0.00-0.03); Immature Granulocytes Pct Auto 0.1 % (0.0-0.5); Lymphocytes Absolute Auto 1.8 10^3/uL (1.2-3.8); Mean Corpuscular HGB Conc 34.2 g/dL (29.9-35.2); Mean Corpuscular Hemoglobin 31.4 pg (26.7-34.0); Mean Corpuscular Volume 91.9 fL (81.0-99.0); Platelet Count 283 10^3/uL (150-450); Red Blood Count 3.85 10^6/uL (4.20-5.40); White Blood Count 6.8 10^3/uL (4.0-11.0)
[2024-12-19 10:16] LABS: Alanine Aminotransferase 23 U/L (14-59); Albumin Globulin Ratio 1.2; Albumin Level 4.3 g/dL (3.4-5.0); Alkaline Phosphatase 68 U/L (46-116); Amylase 35 U/L (25-115); Anion Gap 16.7; Aspartate Amino Transferase 28 U/L (15-37); Blood Urea Nitrogen 7.0 mg/dL (7.0-18.0); Calcium 9.3 mg/dL (8.5-10.1); Carbon Dioxide 26.5 mmol/L (21.0-32.0); Chloride 102 mmol/L (98-107); Estimated GFR (African America >60 (>=60 mL/min/1.73m^2); Estimated GFR (Non-African Ame >60 (>=60 mL/min/1.73m^2); Globulin 3.6 g/dL; Glucose 88 mg/dL (74-106); Lipase 29.0 U/L (16.0-77.0); Potassium 3.2 mmol/L (3.5-5.1); Sodium 142 mmol/L (136-145); Total Protein 7.9 g/dL (6.4-8.2)
--- NOTE | 2024-12-19 10:35 | XR_ITS ---
The [address] [address] Patient Name: DANIEL BRUNER MRN: [id number] date: 1990 Sex: F Assigned Patient Location: ER Current Patient Location: ER Accession/Order Number: [id number] Exam Date: 12/19/2024 10:58 Report Date: 12/19/2024 10:59 At the request of: PATY POSADA MD Procedure: XR abdomen 1V KUB: CLINICAL INFORMATION: Upper abdominal pain for 45 minutes. COMPARISON: CT abdomen and pelvis 11/07/2024 FINDINGS: Post cholecystectomy clips. Tubal ligation clips. No bowel obstruction or free air. Osseous structures demonstrate degenerative change. XR/XR abdomen 1V IMPRESSION: No acute process. Impression dictated by: Anthony León Jr., D.O. 12/19/2024 10:59 AM Dictation Location: [facility] Electronically authenticated by: [id number] Y Date: 12/19/2024 10:59
[2024-12-19 11:15] LABS: Glucose Urine UA NEGATIVE (NEGATIVE)
[2024-12-19] MEDS: lidocaine HCL 15 ML, MAG HYDROX/ALUMINUM HYD/SIMETH 30 ML, HYOSCYAMINE SULFATE 0.25 MG PO (11:19)
[2024-12-19 11:22] LABS: Cast Seen? NONE SEEN #/LPF (NONE SEEN); Crystals Seen? None Seen #/HPF (None Seen); Urine Culture Indicated NO
[2024-12-19 12:17] VITALS: BP 122/86; PULSE 76; O2SAT 98
== END 2024-12-19 12:20 | disposition home or self-care (01) ==
PROVIDERS: Emergency Provider Emergency Medicine; PCP Family Medicine
DX: R10.84 Generalized abdominal pain (principal)
CPT/HCPCS: 36415; 74018; 80048; 80076; 81001; 82150; 83690; 84703; 85025; 93005; 99285